=== PATIENT | female | born 1965 | race Caucasian/White ===

== ENCOUNTER 2020-02-10 06:16 | Inpatient (IN) | payer MEDICAID ==
[~2020-02-10] VITALS: Ht 149.9 cm; Wt 55.3 kg
[2020-02-10] VITALS (12 sets, daily range): BP systolic 89–105; BP diastolic 43–66
[2020-02-10] MEDS ORDERED: normal saline 1000ML IV soln IVB ONE (06:45)
[2020-02-10] MEDS ORDERED: pantoprazole 40 MG vial IV ONE (06:45)
[2020-02-10] MEDS ORDERED: normal saline 1000ml 1,000 ML IV SCH (07:39)
[2020-02-10] MEDS ORDERED: magnesium 4gm in 100ml NS 100 ML IV PRN ×2 (07:40→09:20)
[2020-02-10] MEDS ORDERED: magnesium Cl slow-release 64mg tablet PO PRN ×2 (07:40→09:20)
[2020-02-10] MEDS ORDERED: potassium Cl 20 mEq SR tablet PO PRN ×2 (07:40)
[2020-02-10] MEDS ORDERED: ondansetron/PF 4mg/2ml inj IV PRN ×4 (07:40→16:15)
[2020-02-10] MEDS ORDERED: potassium CL 10mEq/100ml bag 100 ML IV PRN ×3 (07:40→09:20)
[2020-02-10] MEDS ORDERED: magnesium 2GM in 50ml NS 50 ML IV PRN ×2 (07:40→09:20)
[2020-02-10] MEDS ORDERED: iohexol 300mg/ml 100ml inj. ONE (07:53)
[2020-02-10] MEDS: K and/or MAG REPLACEMENT MC SCH ×2 (08:00→20:00)
--- NOTE | 2020-02-10 08:43 | NUR ---
Patient in room ED 16. I have received report from Zack SINCLAIR and had the opportunity to ask questions and assume patient care. Awaiting patient's arrival to the unit.
[2020-02-10] MEDS ORDERED: piperacillin/tazo 3.375gm/50ml 50 ML IV ONE (09:00)
[2020-02-10 09:11] LABS: BASOPHILS # (AUTO) 0.1 X10'3 (0-0.2); BASOPHILS % (AUTO) 0.6 % (0-1); EOSINOPHILS % (AUTO) 0.1 % (0-6); HEMATOCRIT 31.1 % (35.0-45.0); HEMOGLOBIN 10.6 g/dl (12.0-16.0); LYMPHOCYTES # (AUTO) 0.9 X10'3 (1.1-4.8); LYMPHOCYTES % (AUTO) 8.9 % (21-51); MEAN CORPUSCULAR HEMOGLOBIN 36.6 PG (27.0-31.0); MEAN CORPUSCULAR VOLUME 107.8 FL (78-98); MEAN PLATELET VOLUME 7.2 FL (7.4-10.4); MONOCYTES # (AUTO) 0.9 X10'3 (0-0.9); MONOCYTES % (AUTO) 9.4 % (2-12); PLATELET COUNT 118 X10'3 (140-440); RED BLOOD COUNT 2.89 X10'6 (4.20-5.60); RED CELL DISTRIBUTION WIDTH 15.4 % (11.5-14.5); WHITE BLOOD COUNT 9.8 X10'3 (4.5-11.0)
[2020-02-10] MEDS ORDERED: desmopressin inj. 20 MCG in normal saline 100ml IV soln 95 ML IV ONE (09:15)
[2020-02-10] MEDS ORDERED: acetaminophen 650mg rectal suppository RC PRN (09:20)
[2020-02-10] MEDS ORDERED: sodium phosphate inj. 30 MMOL in dextrose 5%-water 250 ML IV PRN (09:20)
[2020-02-10] MEDS ORDERED: acetaminophen 325mg tablet PO PRN (09:20)
[2020-02-10] MEDS ORDERED: morphine 2 MG/ML inj. syringe IV PRN ×2 (09:20→13:45)
[2020-02-10] MEDS ORDERED: magnesium hydroxide 30ml (MOM) UD suspension PO PRN (09:20)
[2020-02-10] MEDS ORDERED: morphine 4 MG/ML inj SYRINge IV PRN ×2 (09:20→13:45)
[2020-02-10] MEDS ORDERED: sodium phosphate inj. 15 MMOL in dextrose 5%-water 250 ML IV PRN (09:20)
[2020-02-10] MEDS ORDERED: LIDOcaine 2% 10ml TOPICAL JELLY (Urojet) TP ONE (09:20)
[2020-02-10 09:26] LABS: PARTIAL THROMBOPLASTIN TIME 62 SECONDS (22-32)
[2020-02-10 09:36] LABS: ALANINE AMINOTRANSFERASE 32 U/L (12-78); ALBUMIN 1.1 G/DL (3.4-5.0); ALBUMIN/GLOBULIN RATIO 0.3 (1.1-1.5); ALKALINE PHOSPHATASE 94 IU/L (46-116); ANION GAP 9 (8-16); ASPARTATE AMINO TRANSFERASE 66 U/L (10-37); BILIRUBIN,TOTAL 2.9 MG/DL (0.1-1.0); BLOOD UREA NITROGEN 35 MG/DL (7-18); BUN/CREATININE RATIO 31.5 (6.6-38.0); CALCIUM 7.3 MG/DL (8.5-10.1); CHLORIDE 94 MMOL/L (99-107); CREATININE 1.11 MG/DL (0.40-0.90); GLUCOSE 102 MG/DL (70-104); POTASSIUM 4.4 MMOL/L (3.5-5.1); SODIUM 124 MMOL/L (135-145); TOTAL CARBON DIOXIDE 21.2 MMOL/L (24-32); TOTAL PROTEIN 5.1 G/DL (6.4-8.2); eGFR 51 ML/MIN
--- NOTE | 2020-02-10 09:54 | NUR ---
DR MARQUEZ CALLED ON [phone] TO NOTIFY LA 4.3
[2020-02-10 09:55] LABS: PLATELET ESTIMATE DECREASED
--- NOTE | 2020-02-10 09:55 | NUR ---
DR MARQUEZ NOT AVAILABLE LFT MESSAGE FOR LA 4.2
[2020-02-10 09:56] LABS: AMYLASE 115 U/L (25-115); LIPASE 593 U/L (73-393)
[2020-02-10] MEDS: normal saline 1000ml 1,000 ML IV SCH ×4 (10:03→22:36)
--- NOTE | 2020-02-10 10:11 | NUR ---
CALLED DR MARQUEZ REGARDING PT LOW BP 87/59 AND ALSO PT L;ACTIC ACID PER MD" DO NOT WORRY ABOUT IT ,WE HAVE PLAN" PICC LINE NURSE WITH DR MARQUEZ AWARE ABOUT PICC LINE NEED TO BE PLACED WHEN PT GO TO ICU.
--- NOTE | 2020-02-10 10:19 | NUR ---
RECEVIED CALL FROM BLOOD BANK FOR PRODUCT WHICH IS READY,PT NEED PICC LINE , AWARE ABOUT THE PICC LINE.
--- NOTE | 2020-02-10 10:21 | NUR ---
ECHO AT BEDSIDE.WILL CONT TO MONITOR.
--- NOTE | 2020-02-10 10:31 | NUR ---
Er called regarding PICC order for pt. Spoke with Dr. Ray regarding PICC order, per Dr. Ray place PICC when pt arrives to ICU. I responded to the ER and spoke with the nurse who states patient does have an IV but needs a PICC. I advised the nurse the PICC will be placed after leaving ER and arriving on the floor. Dayana East PICC swine extension field specialist
--- NOTE | 2020-02-10 10:55 | NUR ---
called report to david bennett at [facility] informed that pt products are ready ,echo at bedside as pt is done will send pt upsatirs and also notified that pt desmo is not started yet will send with the pt.
--- NOTE | 2020-02-10 11:20 | NUR ---
received from ER. placed NG return of reddish brown drainage approx 100cc. ddavp give PICC RN notified that pt in CICU
--- NOTE | 2020-02-10 12:20 | NUR ---
Received patient report from Andria Tamayo patient laying in bed with eyes open, vital signs stable no signs or symptoms of distress, Picc nurse bedside to place a PICC. OR called will be here in an hour or so to take patient surgery with Dr. ALEJANDRA
--- NOTE | 2020-02-10 13:01 | NUR ---
[facility] LINE INFORMATION: REF: [id number] LOT: [id number] EXP: 10/08/2020
[2020-02-10] MEDS ORDERED: LIDOcaine 1% 30ml preserv. free vial ONE (13:33)
[2020-02-10] MEDS ORDERED: BUPIVACAINE liposomal/PF 13.3 MG/ML vial IM ONE (13:33)
[2020-02-10] MEDS ORDERED: BUPIVAcaine/PF 2.5 mg/ml (0.25%) 30ml vial ONE (13:33)
[2020-02-10] MEDS ORDERED: BUPIVAcaine/PF 2.5mg/ml (0.25%) 10ml vial ONE (13:33)
[2020-02-10] MEDS ORDERED: ringers solution, lacted 1,000 ML IV SCH (13:43)
[2020-02-10] MEDS ORDERED: proCHLORperazine 10 MG/2 ml inj IV PRN (13:45)
[2020-02-10] MEDS ORDERED: meperidine/PF 25mg/ml syringe IV PRN ×3 (13:45)
[2020-02-10] MEDS ORDERED: FURO-150 PO (13:46)
[2020-02-10] MEDS ORDERED: SPIR50TA5 PO (13:46)
[2020-02-10] MEDS ORDERED: LIDOcaine 1% (10mg/ml) 2ml vial ONE (13:46)
[2020-02-10] MEDS ORDERED: OMEP-50 PO (13:46)
[2020-02-10] MEDS ORDERED: CELE200C PO (13:46)
[2020-02-10] MEDS ORDERED: normal saline 1000ml 1,000 ML IV ONE (13:50)
[2020-02-10] MEDS ORDERED: desflurane 240ml liquid inh. IH ONE (14:15)
[2020-02-10] MEDS ORDERED: neostigmine methylsulfate 1 MG/ML 10ml vial ONE (14:15)
[2020-02-10] MEDS ORDERED: glycopyrrolate 0.2mg/ml inj ONE (14:15)
--- NOTE | 2020-02-10 14:18 | NUR ---
PT TO OR
[2020-02-10] MEDS ORDERED: midazolam 2 mg/2 ml injection ONE (14:20)
[2020-02-10] MEDS ORDERED: fentaNYL /PF 50mcg/ml 5ml ampule ONE (14:21)
[2020-02-10] MEDS ORDERED: rocuronium 10mg/ml inj IV ONE (14:52)
[2020-02-10] MEDS ORDERED: propofol inj 20 ML IV ONE (14:52)
[2020-02-10] MEDS ORDERED: ceFOXitin 1000 MG inj ONE (14:52)
[2020-02-10 15:01] LABS: ABG BASE EXCESS -5.7 mmol/L (-2.0-2.0); ABG PCO2 (T) 33.5 mmHg (32.0-45.0); ABG PO2 (T) 83.9 mmHg (75.0-100.0); FCOHb 0.3 % (0.0-3.9); FMetHb 0.2 % (0.0-1.5); FO2Hb 94.5 % (94-97); TOTAL HEMOGLOBIN 7.7 G/dl (12.0-16.0)
[2020-02-10 15:01] LABS: ISTAT CREATININE 0.7 mg/dL (0.6-1.1); ISTAT HGB 7.5 g/dl (12.0-16.0); ISTAT IONIZED CALCIUM 1.03 mmol/L (1.03-1.32); ISTAT K 3.7 mmol/L (3.5-5.1); POC BUN/CREATININE RATIO 38.6 (6.6-38.0)
[2020-02-10] MEDS ORDERED: albumin (Human) 5% 250ml 250 ML IV ONE ×2 (15:06)
[2020-02-10] MEDS ORDERED: sugammadex 200mg/2ml injection IV ONE (15:42)
[2020-02-10] MEDS ORDERED: CADD PCA waste documentation MC PRN (16:15)
[2020-02-10] MEDS ORDERED: naloxone 0.4 mg/ml inj IV PRN (16:15)
--- NOTE | 2020-02-10 16:30 | NUR ---
Per Dr. Chong run patients Normal saline at 250mls/hr after the 1 liter bolus is complete. He also stated to give 5% albumin if blood pressure is "soft"
[2020-02-10] MEDS: HYDROmorphone/NS 1 mg/ml CADD 50 ML IV SCH ×5 (17:00→23:00)
[2020-02-10] MEDS: pantoprazole 40MG/NS 100ML BAG 100 ML IV SCH ×2 (17:08→21:28)
[2020-02-10] MEDS: thiamine inj. 100 MG, MVI, adult No.4 with vit. K 10 ML in dextrose 5% water 500ml 489 ML IV SCH ×3 (18:46)
--- NOTE | 2020-02-10 20:08 | NUR ---
Per Andria Schmitt RN if patient's BP is soft ok to admin Albumin 25% per Dr. Mares.
[2020-02-10] MEDS ORDERED: albumin (human) 25% 100 ML IV solution IV ONE ×2 (20:10→21:25)
[2020-02-10] MEDS ORDERED: pantoprazole 40MG/NS 100ML BAG 100 ML IV SCH (21:00)
[2020-02-11] VITALS (27 sets, daily range): BP systolic 89–107; BP diastolic 45–57
[2020-02-11] MEDS: piperacillin/tazo 4.5gm/100ml 100 ML IV SCH ×3 (00:01→15:49)
[2020-02-11] MEDS: pantoprazole 40MG/NS 100ML BAG 100 ML IV SCH ×5 (00:58→22:19)
[2020-02-11] MEDS: HYDROmorphone/NS 1 mg/ml CADD 50 ML IV SCH ×12 (01:00→23:00)
[2020-02-11] MEDS: normal saline 1000ml 1,000 ML IV SCH ×5 (02:08→15:15)
[2020-02-11 03:25] LABS: PARTIAL THROMBOPLASTIN TIME 62 SECONDS (22-32)
[2020-02-11 04:17] LABS: BASOPHILS % (AUTO) 0.6 % (0-1); EOSINOPHILS % (AUTO) 0.3 % (0-6); HEMOGLOBIN 7.3 g/dl (12.0-16.0); LYMPHOCYTES # (AUTO) 1.1 X10'3 (1.1-4.8); LYMPHOCYTES % (AUTO) 15.7 % (21-51); MEAN CORPUSCULAR HEMOGLOBIN 35.8 PG (27.0-31.0); MEAN CORPUSCULAR HGB CONC 33.6 g/dL (33.0-36.5); MEAN CORPUSCULAR VOLUME 106.7 FL (78-98); MEAN PLATELET VOLUME 6.7 FL (7.4-10.4); MONOCYTES # (AUTO) 0.8 X10'3 (0-0.9); MONOCYTES % (AUTO) 11.1 % (2-12); NEUTROPHILS % (AUTO) 72.3 % (42-75); PLATELET COUNT 58 X10'3 (140-440); RED BLOOD COUNT 2.03 X10'6 (4.20-5.60); RED CELL DISTRIBUTION WIDTH 15.2 % (11.5-14.5); WHITE BLOOD COUNT 6.9 X10'3 (4.5-11.0)
[2020-02-11 04:19] LABS: ALANINE AMINOTRANSFERASE 24 U/L (12-78); ALBUMIN 2.4 G/DL (3.4-5.0); ALKALINE PHOSPHATASE 55 IU/L (46-116); ANION GAP 10 (8-16); ASPARTATE AMINO TRANSFERASE 46 U/L (10-37); BILIRUBIN,TOTAL 2.5 MG/DL (0.1-1.0); BLOOD UREA NITROGEN 21 MG/DL (7-18); BUN/CREATININE RATIO 34.4 (6.6-38.0); CALCIUM 6.7 MG/DL (8.5-10.1); CHLORIDE 104 MMOL/L (99-107); CREATININE 0.61 MG/DL (0.40-0.90); GLUCOSE 83 MG/DL (70-104); MAGNESIUM 1.4 MG/DL (1.5-2.4); PARTIAL THROMBOPLASTIN TIME 63 SECONDS (22-32); PHOSPHORUS 1.8 MG/DL (2.3-4.5); SODIUM 133 MMOL/L (135-145); TOTAL CARBON DIOXIDE 19.2 MMOL/L (24-32); TOTAL PROTEIN 4.9 G/DL (6.4-8.2); eGFR > 90 ML/MIN
[2020-02-11 04:21] LABS: HEMATOCRIT 21.7 % (35.0-45.0); POTASSIUM 2.9 MMOL/L (3.5-5.1)
[2020-02-11] MEDS: potassium Cl 20mEq/100mL bag 100 ML IV PRN ×8 (04:39→18:31)
[2020-02-11] MEDS: K and/or MAG REPLACEMENT MC SCH ×2 (08:51→20:00)
[2020-02-11] MEDS: thiamine inj. 100 MG, MVI, adult No.4 with vit. K 10 ML in dextrose 5% water 500ml 489 ML IV SCH ×3 (08:52)
[2020-02-11] MEDS ORDERED: NORepinephrine 8mg/ 250ml NS 250 ML IV PRN (11:08)
--- NOTE | 2020-02-11 13:30 | NUR ---
Patient in room CICU 2008. I have received report from Sabine SINCLAIR and had the opportunity to ask questions and assume patient care.
--- NOTE | 2020-02-11 13:32 | NUR ---
RECEIVED ORDERS FROM DR. MARQUEZ FOR HYPOGLYCEMIC PROTOCOL, IS AWARE OF LOW BS 61 IN WHICH REQUIRED D50 IVP. ALSO CLARIFIED MED REQ ORDERS FOR LASIX TO BE GIVEN ON SUNDAY, SUNDAY, AND SUNDAY. MADE PHARMACY AWARE.
--- NOTE | 2020-02-11 13:37 | NUR ---
GAVE REPORT TO TAYA RN, TRANSFERRED CARE. SHE WILL BE WORKING ON GETTING ANOTHER LINE, PICC RN PAGED, ORALIA DRAIN AND MIDLINE INCISION ASSESSED TOGETHER. FFP INFUSING THEN PRBC TO BE TRANSFUSED. NOTED PATIENT'S MAP HAS IMPROVED SINCE START OF INFUSIONS.
[2020-02-11] MEDS ORDERED: dextrose 50%-water 50ml dispensing syringe IV PRN ×2 (13:40)
[2020-02-11] MEDS ORDERED: glucagon, human recombinant 1mg kit SUBCUT PRN (13:40)
[2020-02-11] MEDS ORDERED: dextrose ORAL solution 15 GM/59 ML bottle PO PRN ×2 (13:40)
[2020-02-11 14:33] LABS: ALBUMIN 2.4 G/DL (3.4-5.0); ANION GAP 9 (8-16); BLOOD UREA NITROGEN 16 MG/DL (7-18); BUN/CREATININE RATIO 26.7 (6.6-38.0); CALCIUM 7.3 MG/DL (8.5-10.1); CHLORIDE 106 MMOL/L (99-107); GLUCOSE 109 MG/DL (70-104); POTASSIUM 3.4 MMOL/L (3.5-5.1); SODIUM 133 MMOL/L (135-145); TOTAL CARBON DIOXIDE 17.6 MMOL/L (24-32); eGFR > 90 ML/MIN
[2020-02-11 15:14] LABS: MAGNESIUM 1.4 MG/DL (1.5-2.4)
[2020-02-11] MEDS: ipratropium/albuterol 3ml nebule NEB PRN (16:06)
--- NOTE | 2020-02-11 18:30 | NUR ---
Patient in room [facility] 2008. I have received report from Parvez SINCLAIR and had the opportunity to ask questions and assume patient care. Addendum: 02/11/20 at 1905 by Tri Gonzalez RN Amended: Links added.
--- NOTE | 2020-02-11 18:33 | NUR ---
Problems reprioritized. Patient report given, questions answered & plan of care reviewed with Tri SINCLAIR.
[2020-02-12] VITALS (30 sets, daily range): BP systolic 90–133; BP diastolic 40–91
[2020-02-12] MEDS: HYDROmorphone/NS 1 mg/ml CADD 50 ML IV SCH ×12 (01:00→22:59)
[2020-02-12] MEDS: normal saline 1000ml 1,000 ML IV SCH ×2 (01:16→05:41)
[2020-02-12 02:48] LABS: BASOPHILS # (AUTO) 0.2 X10'3 (0-0.2); BASOPHILS % (AUTO) 1.4 % (0-1); EOSINOPHILS # (AUTO) 0.1 X10'3 (0-0.9); EOSINOPHILS % (AUTO) 0.6 % (0-6); HEMATOCRIT 29.5 % (35.0-45.0); HEMOGLOBIN 10.1 g/dl (12.0-16.0); LYMPHOCYTES # (AUTO) 1.2 X10'3 (1.1-4.8); LYMPHOCYTES % (AUTO) 10.2 % (21-51); MEAN CORPUSCULAR HEMOGLOBIN 35.4 PG (27.0-31.0); MEAN CORPUSCULAR HGB CONC 34.2 g/dL (33.0-36.5); MEAN CORPUSCULAR VOLUME 103.7 FL (78-98); MEAN PLATELET VOLUME 6.9 FL (7.4-10.4); MONOCYTES # (AUTO) 0.9 X10'3 (0-0.9); MONOCYTES % (AUTO) 7.6 % (2-12); NEUTROPHILS # (AUTO) 9.2 X10'3 (1.8-7.7); NEUTROPHILS % (AUTO) 80.2 % (42-75); PLATELET COUNT 59 X10'3 (140-440); RED BLOOD COUNT 2.84 X10'6 (4.20-5.60); WHITE BLOOD COUNT 11.5 X10'3 (4.5-11.0)
[2020-02-12 03:01] LABS: PARTIAL THROMBOPLASTIN TIME 46 SECONDS (22-32)
[2020-02-12] MEDS: pantoprazole 40MG/NS 100ML BAG 100 ML IV SCH ×5 (03:10→22:59)
[2020-02-12] MEDS: piperacillin/tazo 4.5gm/100ml 100 ML IV SCH ×3 (03:10→16:49)
[2020-02-12 03:17] LABS: ALANINE AMINOTRANSFERASE 28 U/L (12-78); ALBUMIN 2.3 G/DL (3.4-5.0); ALBUMIN/GLOBULIN RATIO 0.8 (1.1-1.5); ALKALINE PHOSPHATASE 71 IU/L (46-116); ANION GAP 6 (8-16); ASPARTATE AMINO TRANSFERASE 62 U/L (10-37); BILIRUBIN,TOTAL 3.6 MG/DL (0.1-1.0); BLOOD UREA NITROGEN 13 MG/DL (7-18); BUN/CREATININE RATIO 22.8 (6.6-38.0); CALCIUM 7.6 MG/DL (8.5-10.1); CHLORIDE 107 MMOL/L (99-107); CREATININE 0.57 MG/DL (0.40-0.90); GLUCOSE 80 MG/DL (70-104); MAGNESIUM 2.7 MG/DL (1.5-2.4); PHOSPHORUS 1.6 MG/DL (2.3-4.5); POTASSIUM 4.6 MMOL/L (3.5-5.1); SODIUM 132 MMOL/L (135-145); TOTAL CARBON DIOXIDE 18.6 MMOL/L (24-32); TOTAL PROTEIN 5.2 G/DL (6.4-8.2); eGFR > 90 ML/MIN
--- NOTE | 2020-02-12 04:04 | NUR ---
Huber updated on current labs and patient's hemodynamic status. No new orders at this time. Titrating Levophed to keep MAP greater than 60.
--- NOTE | 2020-02-12 06:30 | NUR ---
Patient in room CICU 2008. I have received report from Tri SINCLAIR and had the opportunity to ask questions and assume patient care.
--- NOTE | 2020-02-12 06:30 | NUR ---
Problems reprioritized. Patient report given, questions answered & plan of care reviewed with Nhung SINCLAIR.
[2020-02-12] MEDS: thiamine inj. 100 MG, MVI, adult No.4 with vit. K 10 ML in dextrose 5% water 500ml 500 ML IV SCH ×3 (07:51)
[2020-02-12] MEDS: K and/or MAG REPLACEMENT MC SCH ×2 (08:00→19:45)
[2020-02-12] MEDS ORDERED: pneumococcal 23-VAL P-sac vacc 25 mcg/0.5ml vial IMVAC ONE (10:00)
[2020-02-12] MEDS: ipratropium/albuterol 3ml nebule NEB PRN (12:03)
--- NOTE | 2020-02-12 14:57 | NUR ---
Malnutrition consult: Pt reports 2-13 lb wt loss with decreased appetite per malnutrition risk screen with RN. Pt with EtOH hx, currently receiving banana bag. Patient's current scaled weight is 60.3 kg (140% IBW). Pt with perforated peptic ulcer, now s/p surgical repair and 10 L of ascites was drained from the abdomen per physician notes. Pt likely with fluctuations in appetite and weight secondary to fluid. Pt currently NPO with an NG tube in place. Pt with no documented significant decrease in muscle strength or edema. Pt currently lacks a minimum of two criteria for malnutrition. Will continue to follow. Addendum: 02/12/20 at [address] Amended: Links added.
[2020-02-12] MEDS: ipratropium/albuterol 3ml nebule NEB SCH ×3 (15:00→23:11)
--- NOTE | 2020-02-12 17:00 | NUR ---
Discussed if Dr. Ray would like repeat labs for phos or platelets. States can wait until am. Received order to start Albumin 25% 100 ML Q6H for 4 days. Will continue to monitor.
--- NOTE | 2020-02-12 18:50 | NUR ---
Problems reprioritized. Patient report given, questions answered & plan of care reviewed with Tri SINCLAIR.
[2020-02-12] MEDS ORDERED: pantoprazole 40 MG vial IV SCH (20:00)
[2020-02-12] MEDS: albumin (human) 25% 100 ML IV solution IV SCH (20:02)
[2020-02-13] VITALS (16 sets, daily range): BP systolic 80–120; BP diastolic 47–79
[2020-02-13] MEDS: piperacillin/tazo 4.5gm/100ml 100 ML IV SCH ×3 (00:29→15:40)
[2020-02-13] MEDS: HYDROmorphone/NS 1 mg/ml CADD 50 ML IV SCH ×9 (01:00→17:00)
[2020-02-13] MEDS: albumin (human) 25% 100 ML IV solution IV SCH ×4 (02:18→20:08)
[2020-02-13 03:19] LABS: BASOPHILS % (AUTO) 0.2 % (0-1); EOSINOPHILS # (AUTO) 0.1 X10'3 (0-0.9); EOSINOPHILS % (AUTO) 0.4 % (0-6); HEMOGLOBIN 9.6 g/dl (12.0-16.0); LYMPHOCYTES # (AUTO) 1.4 X10'3 (1.1-4.8); LYMPHOCYTES % (AUTO) 10.4 % (21-51); MEAN CORPUSCULAR HEMOGLOBIN 35.3 PG (27.0-31.0); MEAN CORPUSCULAR HGB CONC 34.4 g/dL (33.0-36.5); MEAN CORPUSCULAR VOLUME 102.6 FL (78-98); MEAN PLATELET VOLUME 7.3 FL (7.4-10.4); MONOCYTES # (AUTO) 0.8 X10'3 (0-0.9); MONOCYTES % (AUTO) 5.7 % (2-12); NEUTROPHILS # (AUTO) 11.5 X10'3 (1.8-7.7); NEUTROPHILS % (AUTO) 83.3 % (42-75); PLATELET COUNT 130 X10'3 (140-440); RED BLOOD COUNT 2.73 X10'6 (4.20-5.60); RED CELL DISTRIBUTION WIDTH 17.7 % (11.5-14.5); WHITE BLOOD COUNT 13.8 X10'3 (4.5-11.0)
[2020-02-13 03:28] LABS: PARTIAL THROMBOPLASTIN TIME 48 SECONDS (22-32)
[2020-02-13] MEDS: ipratropium/albuterol 3ml nebule NEB SCH ×6 (03:41→23:00)
[2020-02-13 03:45] LABS: ALANINE AMINOTRANSFERASE 25 U/L (12-78); ALBUMIN 2.4 G/DL (3.4-5.0); ALBUMIN/GLOBULIN RATIO 0.9 (1.1-1.5); ALKALINE PHOSPHATASE 74 IU/L (46-116); ANION GAP 10 (8-16); ASPARTATE AMINO TRANSFERASE 56 U/L (10-37); BILIRUBIN,TOTAL 2.8 MG/DL (0.1-1.0); BLOOD UREA NITROGEN 7 MG/DL (7-18); BUN/CREATININE RATIO 12.7 (6.6-38.0); CALCIUM 7.9 MG/DL (8.5-10.1); CHLORIDE 106 MMOL/L (99-107); CREATININE 0.55 MG/DL (0.40-0.90); GLUCOSE 89 MG/DL (70-104); MAGNESIUM 2.1 MG/DL (1.5-2.4); PHOSPHORUS 2.4 MG/DL (2.3-4.5); POTASSIUM 3.4 MMOL/L (3.5-5.1); SODIUM 135 MMOL/L (135-145); TOTAL CARBON DIOXIDE 19.4 MMOL/L (24-32); TOTAL PROTEIN 5.2 G/DL (6.4-8.2); eGFR > 90 ML/MIN
[2020-02-13] MEDS: normal saline 1000ml 1,000 ML IV SCH ×2 (03:56→17:58)
[2020-02-13] MEDS: potassium Cl 20mEq/100mL bag 100 ML IV PRN ×4 (04:35→20:09)
[2020-02-13] MEDS: pantoprazole 40MG/NS 100ML BAG 100 ML IV SCH ×3 (04:36→14:58)
--- NOTE | 2020-02-13 06:30 | NUR ---
Patient in room CICU 2007. I have received report from YAHIR Bartlett and had the opportunity to ask questions and assume patient care.
[2020-02-13] MEDS: furosemide 20MG tablet PO SCH (08:00)
[2020-02-13] MEDS: K and/or MAG REPLACEMENT MC SCH ×2 (08:00→20:09)
[2020-02-13] MEDS: thiamine inj. 100 MG, MVI, adult No.4 with vit. K 10 ML in dextrose 5% water 500ml 500 ML IV SCH ×3 (09:58)
--- NOTE | 2020-02-13 14:10 | NUR ---
Patient stable for transfer per MD orders. Patient belongings and chart gathered. Report given to YAHIR Rosenberg. Allowed time for questioning, all questions asked. [facility] discontinued, with catheter tip intact. Tele box placed on patient prior to departure. Patient transfered to [facility].
--- NOTE | 2020-02-13 14:19 | NUR ---
Patient in room CICU 2007 admitted to U 3018B. I have received report from Yaneth SINCLAIR and had the opportunity to ask questions and assume patient care.
--- NOTE | 2020-02-13 18:25 | NUR ---
Problems reprioritized. Patient report given, questions answered & plan of care reviewed with Vandana SINCLAIR.
[2020-02-13] MEDS: lactobacillus rhamnosus 10,000 MMU CELLS/CAPSULE PO SCH (20:08)
[2020-02-14] MEDS: piperacillin/tazo 4.5gm/100ml 100 ML IV SCH ×4 (01:01→23:38)
[2020-02-14] MEDS: albumin (human) 25% 100 ML IV solution IV SCH ×4 (01:08→19:46)
[2020-02-14 02:00] VITALS: BP 105/63
[2020-02-14] MEDS: ipratropium/albuterol 3ml nebule NEB SCH ×6 (03:00→23:02)
[2020-02-14 06:00] VITALS: BP 115/62
[2020-02-14 06:12] LABS: BASOPHILS # (AUTO) 0.1 X10'3 (0-0.2); BASOPHILS % (AUTO) 0.4 % (0-1); EOSINOPHILS # (AUTO) 0.1 X10'3 (0-0.9); EOSINOPHILS % (AUTO) 0.4 % (0-6); HEMATOCRIT 27.5 % (35.0-45.0); HEMOGLOBIN 9.5 g/dl (12.0-16.0); LYMPHOCYTES # (AUTO) 1.3 X10'3 (1.1-4.8); LYMPHOCYTES % (AUTO) 8.6 % (21-51); MEAN CORPUSCULAR HEMOGLOBIN 35.5 PG (27.0-31.0); MEAN CORPUSCULAR HGB CONC 34.4 g/dL (33.0-36.5); MEAN PLATELET VOLUME 7.2 FL (7.4-10.4); MONOCYTES # (AUTO) 0.7 X10'3 (0-0.9); MONOCYTES % (AUTO) 4.8 % (2-12); NEUTROPHILS # (AUTO) 12.5 X10'3 (1.8-7.7); NEUTROPHILS % (AUTO) 85.8 % (42-75); PLATELET COUNT 99 X10'3 (140-440); RED BLOOD COUNT 2.67 X10'6 (4.20-5.60); RED CELL DISTRIBUTION WIDTH 17.8 % (11.5-14.5); WHITE BLOOD COUNT 14.6 X10'3 (4.5-11.0)
[2020-02-14 06:21] LABS: PARTIAL THROMBOPLASTIN TIME 73 SECONDS (22-32)
--- NOTE | 2020-02-14 06:21 | NUR ---
Problems reprioritized. Patient report given, questions answered & plan of care reviewed with YAHIR Rosenberg.
--- NOTE | 2020-02-14 06:26 | NUR ---
reported critical PTT of to June, no new orders at this time, she will review her chart, will continue to monitor.
--- NOTE | 2020-02-14 06:27 | NUR ---
Patient in room PCU 3016. I have received report from Felix SINCLAIR and had the opportunity to ask questions and assume patient care.
[2020-02-14 06:34] LABS: ALBUMIN 3.2 G/DL (3.4-5.0); ALBUMIN/GLOBULIN RATIO 1.6 (1.1-1.5); ALKALINE PHOSPHATASE 93 IU/L (46-116); ANION GAP 10 (8-16); ASPARTATE AMINO TRANSFERASE 49 U/L (10-37); CALCIUM 8.1 MG/DL (8.5-10.1); CHLORIDE 106 MMOL/L (99-107); GLUCOSE 92 MG/DL (70-104); MAGNESIUM 1.8 MG/DL (1.5-2.4); PHOSPHORUS 2.2 MG/DL (2.3-4.5); POTASSIUM 3.3 MMOL/L (3.5-5.1); SODIUM 137 MMOL/L (135-145); TOTAL CARBON DIOXIDE 21.5 MMOL/L (24-32); TOTAL PROTEIN 5.2 G/DL (6.4-8.2)
[2020-02-14] MEDS: normal saline 1000ml 1,000 ML IV SCH ×2 (06:36→22:58)
[2020-02-14 07:00] LABS: ALANINE AMINOTRANSFERASE 22 U/L (12-78)
[2020-02-14] MEDS ORDERED: CADD PCA waste documentation MC PRN (07:00)
[2020-02-14] MEDS: lactobacillus rhamnosus 10,000 MMU CELLS/CAPSULE PO SCH ×2 (07:16→19:47)
[2020-02-14] MEDS: oxyCODONE IR 5mg (immed. release) tablet PO PRN (07:17)
[2020-02-14] MEDS: pantoprazole 40mg Tablet.DR PO SCH (07:17)
[2020-02-14] MEDS: thiamine inj. 100 MG, MVI, adult No.4 with vit. K 10 ML in dextrose 5% water 500ml 500 ML IV SCH ×3 (07:19)
[2020-02-14 07:26] LABS: BLOOD UREA NITROGEN 3 MG/DL (7-18); BUN/CREATININE RATIO 6.5 (6.6-38.0); CREATININE 0.46 MG/DL (0.40-0.90); eGFR > 90 ML/MIN
[2020-02-14] MEDS: potassium Cl 20 mEq SR tablet PO PRN ×3 (07:57→20:14)
[2020-02-14] MEDS: K and/or MAG REPLACEMENT MC SCH ×2 (08:42→20:00)
[2020-02-14] MEDS: phytonadione inj. 10 MG in normal saline 100ml IV soln 100 ML IV SCH (08:43)
[2020-02-14 11:00] VITALS: BP 90/50
[2020-02-14 15:00] VITALS: BP 95/60
[2020-02-14] MEDS ORDERED: metoclopramide 5 mg/ml inj IV PRN (16:10)
[2020-02-14] MEDS ORDERED: methylnaltrexone br 12mg/0.6ml inj***SubQ only SQ ONE (16:10)
[2020-02-14 18:00] VITALS: BP 108/66
--- NOTE | 2020-02-14 18:28 | NUR ---
Problems reprioritized. Patient report given, questions answered & plan of care reviewed with Vandana SINCLAIR.
[2020-02-14] MEDS: magnesium hydroxide 30ml (MOM) UD suspension PO SCH (19:47)
--- NOTE | 2020-02-14 20:10 | NUR ---
Pt refusing MetaNeb for second night in the row. States she would like to do breathing treatment in nebulizer followed by acapella (flutter).
[2020-02-14 22:00] VITALS: BP 106/84
--- NOTE | 2020-02-14 23:49 | NUR ---
Paged Dr. James. PAGER ID: [phone] MESSAGE: This is YAHIR Ross from [facility]. Pt in 3016B [facility] [address] 55 F Dx GI Bleed,Liver Cirrhosis has a small amt of leak of blood on her abdominal incision.Incision is well-approximated; no s/s of infection; island drsg applied; will cont, to monitor
[2020-02-15] MEDS: oxyCODONE IR 5mg (immed. release) tablet PO PRN ×3 (01:13→16:16)
[2020-02-15] MEDS: albumin (human) 25% 100 ML IV solution IV SCH ×2 (01:31→08:00)
[2020-02-15 02:00] VITALS: BP 92/48
[2020-02-15] MEDS ORDERED: LORazepam 2 mg/ml vial IV ONE (02:40)
[2020-02-15] MEDS: ipratropium/albuterol 3ml nebule NEB SCH ×6 (03:25→23:11)
[2020-02-15 06:00] VITALS: BP 92/56
[2020-02-15 06:03] LABS: BASOPHILS # (AUTO) 0.1 X10'3 (0-0.2); BASOPHILS % (AUTO) 0.4 % (0-1); EOSINOPHILS # (AUTO) 0.1 X10'3 (0-0.9); EOSINOPHILS % (AUTO) 0.4 % (0-6); HEMATOCRIT 24.9 % (35.0-45.0); HEMOGLOBIN 8.5 g/dl (12.0-16.0); LYMPHOCYTES % (AUTO) 7.5 % (21-51); MEAN CORPUSCULAR HEMOGLOBIN 35.2 PG (27.0-31.0); MEAN CORPUSCULAR HGB CONC 34.3 g/dL (33.0-36.5); MEAN CORPUSCULAR VOLUME 102.6 FL (78-98); MEAN PLATELET VOLUME 7.7 FL (7.4-10.4); MONOCYTES # (AUTO) 0.5 X10'3 (0-0.9); MONOCYTES % (AUTO) 3.8 % (2-12); NEUTROPHILS % (AUTO) 87.9 % (42-75); PLATELET COUNT 79 X10'3 (140-440); RED BLOOD COUNT 2.43 X10'6 (4.20-5.60); RED CELL DISTRIBUTION WIDTH 17.1 % (11.5-14.5); WHITE BLOOD COUNT 13.6 X10'3 (4.5-11.0)
[2020-02-15 06:19] LABS: PARTIAL THROMBOPLASTIN TIME 91 SECONDS (22-32)
[2020-02-15 06:22] LABS: ALANINE AMINOTRANSFERASE 20 U/L (12-78); ALBUMIN 3.7 G/DL (3.4-5.0); ALBUMIN/GLOBULIN RATIO 2.1 (1.1-1.5); ALKALINE PHOSPHATASE 80 IU/L (46-116); ANION GAP 12 (8-16); ASPARTATE AMINO TRANSFERASE 47 U/L (10-37); BILIRUBIN,TOTAL 3.1 MG/DL (0.1-1.0); BLOOD UREA NITROGEN 2 MG/DL (7-18); BUN/CREATININE RATIO 3.4 (6.6-38.0); CALCIUM 8.3 MG/DL (8.5-10.1); CHLORIDE 103 MMOL/L (99-107); CREATININE 0.59 MG/DL (0.40-0.90); GLUCOSE 104 MG/DL (70-104); MAGNESIUM 1.6 MG/DL (1.5-2.4); PHOSPHORUS 2.2 MG/DL (2.3-4.5); SODIUM 135 MMOL/L (135-145); TOTAL CARBON DIOXIDE 20.3 MMOL/L (24-32); TOTAL PROTEIN 5.5 G/DL (6.4-8.2); eGFR > 90 ML/MIN
--- NOTE | 2020-02-15 06:33 | NUR ---
Problems reprioritized. Patient report given, questions answered & plan of care reviewed with YAHIR East.
--- NOTE | 2020-02-15 07:12 | NUR ---
Patient in room PCU 3016. I have received report from AZALIA SINCLAIR and had the opportunity to ask questions and assume patient care.
[2020-02-15] MEDS: K and/or MAG REPLACEMENT MC SCH ×2 (08:00→20:00)
[2020-02-15] MEDS: potassium Cl 20 mEq SR tablet PO PRN ×3 (08:49→17:40)
[2020-02-15] MEDS: multivitamins, therapeutics tablet PO SCH (08:49)
[2020-02-15] MEDS: thiamine 100mg tablet PO SCH (08:49)
[2020-02-15] MEDS: lactobacillus rhamnosus 10,000 MMU CELLS/CAPSULE PO SCH ×2 (08:50→20:21)
[2020-02-15] MEDS: pantoprazole 40mg Tablet.DR PO SCH (08:50)
[2020-02-15] MEDS: magnesium hydroxide 30ml (MOM) UD suspension PO SCH ×2 (08:51→20:00)
[2020-02-15] MEDS: piperacillin/tazo 4.5gm/100ml 100 ML IV SCH ×2 (08:54→16:15)
[2020-02-15] MEDS: normal saline 1000ml 1,000 ML IV SCH ×2 (09:16→15:14)
[2020-02-15] MEDS: phytonadione inj. 10 MG in normal saline 100ml IV soln 100 ML IV SCH (10:42)
[2020-02-15 11:00] VITALS: BP 94/54
[2020-02-15] MEDS ORDERED: pneumococcal 23-VAL P-sac vacc 25 mcg/0.5ml vial IMVAC ONE (11:10)
[2020-02-15 14:19] LABS: H PYLORI ANTIBODY NEGATIVE (Neg)
--- NOTE | 2020-02-15 14:40 | NUR ---
Problems reprioritized. Patient report given, questions answered & plan of care reviewed with Kylee RN.
[2020-02-15 15:45] VITALS: BP 103/67
--- NOTE | 2020-02-15 16:25 | NUR ---
Initial: Pt s/p perforated duodenal ulcer repair w/ drain removal per MD. DX sepsis secondary to perforation, GIB, hypokalemia,and etoh liver disease per MD. Advanced to full liquid diet today from clears yesterday. Nausea noted today per MD w/ refusal of breakfast and 0-25% lunch today. PO 50% first day of PO clears yesterday per EMR. LBM 02/09 receiving MoM and s/p relistor yesterday w/ next dose tomorrow per EMR; reglan PRN ordered but not given at this time. Receiving electrolyte replacement per protocol, PO thiamin/MVI for etoh hx, and daily vitamin K per EMR. Will monitor for PO diet tolerance and additional protein needs post-op. Rec: 1. advance diet as medically indicated to regular 2. monitor for ONS needs 3. routine bowel care; opioid antagonist per MD 4. weekly wts Addendum: 02/15/20 at 1625 by Luis Antonio [address]w RD Amended: Links added.
--- NOTE | 2020-02-15 19:00 | NUR ---
Problems reprioritized. Patient report given, questions answered & plan of care reviewed with Madisyn RN.
[2020-02-15 19:30] VITALS: BP 90/57
[2020-02-16] VITALS: BP 102/54
[2020-02-16] MEDS: piperacillin/tazo 4.5gm/100ml 100 ML IV SCH ×3 (00:08→16:19)
--- NOTE | 2020-02-16 02:00 | NUR ---
pt refuses to have accucheck Addendum: 02/16/20 at 0336 by Deisy Tay RN Amended: Links added.
[2020-02-16] MEDS: ipratropium/albuterol 3ml nebule NEB SCH ×6 (02:40→23:39)
[2020-02-16] MEDS: oxyCODONE IR 5mg (immed. release) tablet PO PRN ×3 (04:54→21:14)
[2020-02-16] MEDS: normal saline 1000ml 1,000 ML IV SCH ×2 (04:57→16:23)
[2020-02-16 06:04] LABS: BASOPHILS # (AUTO) 0.1 X10'3 (0-0.2); BASOPHILS % (AUTO) 0.3 % (0-1); EOSINOPHILS # (AUTO) 0.1 X10'3 (0-0.9); EOSINOPHILS % (AUTO) 0.7 % (0-6); HEMATOCRIT 30.1 % (35.0-45.0); HEMOGLOBIN 10.3 g/dl (12.0-16.0); LYMPHOCYTES # (AUTO) 1.5 X10'3 (1.1-4.8); LYMPHOCYTES % (AUTO) 7.5 % (21-51); MEAN CORPUSCULAR HEMOGLOBIN 35.4 PG (27.0-31.0); MEAN CORPUSCULAR HGB CONC 34.2 g/dL (33.0-36.5); MEAN CORPUSCULAR VOLUME 103.7 FL (78-98); MEAN PLATELET VOLUME 7.6 FL (7.4-10.4); MONOCYTES # (AUTO) 1.2 X10'3 (0-0.9); MONOCYTES % (AUTO) 5.9 % (2-12); NEUTROPHILS # (AUTO) 16.7 X10'3 (1.8-7.7); NEUTROPHILS % (AUTO) 85.6 % (42-75); PLATELET COUNT 76 X10'3 (140-440); RED CELL DISTRIBUTION WIDTH 17.4 % (11.5-14.5); WHITE BLOOD COUNT 19.5 X10'3 (4.5-11.0)
[2020-02-16 06:19] LABS: ALANINE AMINOTRANSFERASE 22 U/L (12-78); ALBUMIN 3.1 G/DL (3.4-5.0); ALKALINE PHOSPHATASE 102 IU/L (46-116); ANION GAP 7 (8-16); ASPARTATE AMINO TRANSFERASE 70 U/L (10-37); BILIRUBIN,TOTAL 4.3 MG/DL (0.1-1.0); BLOOD UREA NITROGEN 6 MG/DL (7-18); BUN/CREATININE RATIO 10.5 (6.6-38.0); CALCIUM 8.1 MG/DL (8.5-10.1); CHLORIDE 107 MMOL/L (99-107); CREATININE 0.57 MG/DL (0.40-0.90); GLUCOSE 67 MG/DL (70-104); MAGNESIUM 1.6 MG/DL (1.5-2.4); PARTIAL THROMBOPLASTIN TIME 85 SECONDS (22-32); POTASSIUM 4.7 MMOL/L (3.5-5.1); SODIUM 136 MMOL/L (135-145); TOTAL CARBON DIOXIDE 21.6 MMOL/L (24-32); eGFR > 90 ML/MIN
[2020-02-16 06:25] LABS: ALBUMIN/GLOBULIN RATIO 1.5 (1.1-1.5); PHOSPHORUS 1.8 MG/DL (2.3-4.5); TOTAL PROTEIN 5.2 G/DL (6.4-8.2)
[2020-02-16 07:00] VITALS: BP 91/58
--- NOTE | 2020-02-16 07:00 | NUR ---
Patient in room MATTHEW 345B. I have received report from YAHIR JAVIER and had the opportunity to ask questions and assume patient care
[2020-02-16] MEDS: magnesium hydroxide 30ml (MOM) UD suspension PO SCH ×2 (07:45→20:00)
[2020-02-16] MEDS: methylnaltrexone br 12mg/0.6ml inj***SubQ only SQ SCH (07:47)
[2020-02-16] MEDS: Neutra Phos packet PO PRN ×2 (07:57→21:15)
[2020-02-16] MEDS: multivitamins, therapeutics tablet PO SCH (07:57)
[2020-02-16] MEDS: furosemide 20MG tablet PO SCH (07:57)
[2020-02-16] MEDS: thiamine 100mg tablet PO SCH (07:57)
[2020-02-16] MEDS: pantoprazole 40mg Tablet.DR PO SCH (07:57)
[2020-02-16] MEDS: lactobacillus rhamnosus 10,000 MMU CELLS/CAPSULE PO SCH ×2 (07:57→21:14)
[2020-02-16] MEDS: K and/or MAG REPLACEMENT MC SCH ×2 (08:00→20:00)
[2020-02-16] MEDS: phytonadione inj. 10 MG in normal saline 100ml IV soln 100 ML IV SCH (09:18)
[2020-02-16] MEDS ORDERED: phytonadione inj. 10 MG in normal saline 100ml IV soln 100 ML IV ONE (11:30)
[2020-02-16 12:00] VITALS: BP 110/67
--- NOTE | 2020-02-16 18:15 | NUR ---
Problems reprioritized. Patient report given, questions answered & plan of care reviewed with JODI ZAPATA RN.
--- NOTE | 2020-02-16 18:30 | NUR ---
Patient in room MATTHEW 345. I have received report from LORRAINE SINCLAIR and had the opportunity to ask questions and assume patient care.
[2020-02-16 20:00] VITALS: BP 88/54
[2020-02-17] VITALS: BP 100/66
[2020-02-17] MEDS: piperacillin/tazo 4.5gm/100ml 100 ML IV SCH ×2 (00:06→09:26)
[2020-02-17] MEDS: ipratropium/albuterol 3ml nebule NEB SCH ×6 (03:18→22:32)
[2020-02-17] MEDS: normal saline 1000ml 1,000 ML IV SCH ×2 (04:22→21:38)
[2020-02-17 05:09] LABS: BASOPHILS # (AUTO) 0.2 X10'3 (0-0.2); EOSINOPHILS # (AUTO) 0.1 X10'3 (0-0.9); EOSINOPHILS % (AUTO) 0.8 % (0-6); HEMATOCRIT 28.7 % (35.0-45.0); HEMOGLOBIN 9.6 g/dl (12.0-16.0); LYMPHOCYTES # (AUTO) 1.4 X10'3 (1.1-4.8); LYMPHOCYTES % (AUTO) 8.7 % (21-51); MEAN CORPUSCULAR HEMOGLOBIN 34.5 PG (27.0-31.0); MEAN CORPUSCULAR HGB CONC 33.5 g/dL (33.0-36.5); MEAN CORPUSCULAR VOLUME 102.9 FL (78-98); MEAN PLATELET VOLUME 8.2 FL (7.4-10.4); MONOCYTES % (AUTO) 6.4 % (2-12); NEUTROPHILS # (AUTO) 13.4 X10'3 (1.8-7.7); NEUTROPHILS % (AUTO) 83.1 % (42-75); PLATELET COUNT 60 X10'3 (140-440); RED BLOOD COUNT 2.79 X10'6 (4.20-5.60); WHITE BLOOD COUNT 16.1 X10'3 (4.5-11.0)
[2020-02-17 05:23] LABS: ALANINE AMINOTRANSFERASE 19 U/L (12-78); ALBUMIN 2.6 G/DL (3.4-5.0); ALKALINE PHOSPHATASE 109 IU/L (46-116); ANION GAP 9 (8-16); ASPARTATE AMINO TRANSFERASE 65 U/L (10-37); BILIRUBIN,TOTAL 4.5 MG/DL (0.1-1.0); BLOOD UREA NITROGEN 7 MG/DL (7-18); BUN/CREATININE RATIO 11.9 (6.6-38.0); CALCIUM 7.9 MG/DL (8.5-10.1); CHLORIDE 104 MMOL/L (99-107); CREATININE 0.59 MG/DL (0.40-0.90); GLUCOSE 70 MG/DL (70-104); MAGNESIUM 1.5 MG/DL (1.5-2.4); POTASSIUM 3.7 MMOL/L (3.5-5.1); SODIUM 133 MMOL/L (135-145); TOTAL CARBON DIOXIDE 20.3 MMOL/L (24-32); eGFR > 90 ML/MIN
[2020-02-17 05:38] LABS: ALBUMIN/GLOBULIN RATIO 1.1 (1.1-1.5); PHOSPHORUS 3.3 MG/DL (2.3-4.5); TOTAL PROTEIN 4.9 G/DL (6.4-8.2)
[2020-02-17 05:40] LABS: PARTIAL THROMBOPLASTIN TIME 84 SECONDS (22-32)
--- NOTE | 2020-02-17 05:55 | NUR ---
PAGED DR. HITCHCOCK TO INFORM CRITICAL APTT 84 WHICH IS BETTER THAN YESTERDAY 85.
--- NOTE | 2020-02-17 06:30 | NUR ---
Problems reprioritized. Patient report given, questions answered & plan of care reviewed with LORRAINE SINCLARI.
--- NOTE | 2020-02-17 06:45 | NUR ---
Patient in room MATTHEW 345B. I have received report from JODI ZAPATA RN and had the opportunity to ask questions and assume patient care.
[2020-02-17 08:00] VITALS: BP_SYST 137; BP_SYST 99; BP_DIAS 63; BP_DIAS 95
[2020-02-17] MEDS: magnesium hydroxide 30ml (MOM) UD suspension PO SCH ×2 (08:00→20:00)
[2020-02-17] MEDS: K and/or MAG REPLACEMENT MC SCH ×2 (08:00→20:00)
[2020-02-17] MEDS: multivitamins, therapeutics tablet PO SCH (09:26)
[2020-02-17] MEDS: thiamine 100mg tablet PO SCH (09:26)
[2020-02-17] MEDS: pantoprazole 40mg Tablet.DR PO SCH (09:26)
[2020-02-17] MEDS: lactobacillus rhamnosus 10,000 MMU CELLS/CAPSULE PO SCH ×2 (09:27→19:49)
--- NOTE | 2020-02-17 12:13 | NUR ---
Patient in room MATTHEW 345. I have received report from YAHIR Landeros and had the opportunity to ask questions and assume patient care.
[2020-02-17] MEDS ORDERED: phytonadione inj. 10 MG in normal saline 100ml IV soln 100 ML IV ONE (12:40)
[2020-02-17] MEDS ORDERED: piperacillin/tazo 3.375gm/50ml 50 ML IV SCH (16:00)
--- NOTE | 2020-02-17 17:47 | NUR ---
checked student nurse charting
[2020-02-17] MEDS: amox tr/potassium clavulanate 875/125mg TAB PO SCH (17:48)
--- NOTE | 2020-02-17 18:10 | NUR ---
Problems reprioritized. Patient report given, questions answered & plan of care reviewed with JODI ZAPATA RN.
--- NOTE | 2020-02-17 18:30 | NUR ---
Patient in room MATTHEW 345. I have received report from LORRAINE SINCLAIR and had the opportunity to ask questions and assume patient care.
[2020-02-17 19:26] VITALS: BP 100/64
[2020-02-17] MEDS: oxyCODONE IR 5mg (immed. release) tablet PO PRN (19:49)
[2020-02-18] VITALS: BP 108/69
[2020-02-18] MEDS: ipratropium/albuterol 3ml nebule NEB SCH ×6 (02:17→23:00)
[2020-02-18 05:30] LABS: BASOPHILS # (AUTO) 0.1 X10'3 (0-0.2); BASOPHILS % (AUTO) 0.8 % (0-1); EOSINOPHILS # (AUTO) 0.1 X10'3 (0-0.9); EOSINOPHILS % (AUTO) 0.7 % (0-6); HEMOGLOBIN 9.6 g/dl (12.0-16.0); LYMPHOCYTES # (AUTO) 1.5 X10'3 (1.1-4.8); LYMPHOCYTES % (AUTO) 9.2 % (21-51); MEAN CORPUSCULAR HEMOGLOBIN 34.1 PG (27.0-31.0); MEAN CORPUSCULAR HGB CONC 33.2 g/dL (33.0-36.5); MEAN CORPUSCULAR VOLUME 102.6 FL (78-98); MEAN PLATELET VOLUME 7.7 FL (7.4-10.4); MONOCYTES # (AUTO) 1.4 X10'3 (0-0.9); MONOCYTES % (AUTO) 8.8 % (2-12); NEUTROPHILS # (AUTO) 13.1 X10'3 (1.8-7.7); NEUTROPHILS % (AUTO) 80.5 % (42-75); PLATELET COUNT 66 X10'3 (140-440); RED BLOOD COUNT 2.82 X10'6 (4.20-5.60); RED CELL DISTRIBUTION WIDTH 16.8 % (11.5-14.5); WHITE BLOOD COUNT 16.3 X10'3 (4.5-11.0)
[2020-02-18 05:41] LABS: ALANINE AMINOTRANSFERASE 26 U/L (12-78); ALBUMIN 2.4 G/DL (3.4-5.0); ALBUMIN/GLOBULIN RATIO 0.9 (1.1-1.5); ALKALINE PHOSPHATASE 128 IU/L (46-116); ANION GAP 8 (8-16); ASPARTATE AMINO TRANSFERASE 72 U/L (10-37); BILIRUBIN,TOTAL 4.4 MG/DL (0.1-1.0); BLOOD UREA NITROGEN 8 MG/DL (7-18); BUN/CREATININE RATIO 15.7 (6.6-38.0); CALCIUM 7.5 MG/DL (8.5-10.1); CHLORIDE 103 MMOL/L (99-107); CREATININE 0.51 MG/DL (0.40-0.90); GLUCOSE 86 MG/DL (70-104); MAGNESIUM 1.3 MG/DL (1.5-2.4); PHOSPHORUS 3.1 MG/DL (2.3-4.5); POTASSIUM 3.5 MMOL/L (3.5-5.1); SODIUM 132 MMOL/L (135-145); TOTAL CARBON DIOXIDE 20.6 MMOL/L (24-32); TOTAL PROTEIN 5.1 G/DL (6.4-8.2); eGFR > 90 ML/MIN
[2020-02-18 05:47] LABS: PARTIAL THROMBOPLASTIN TIME 90 SECONDS (22-32)
--- NOTE | 2020-02-18 05:50 | NUR ---
CALLED DR. CHAPA AND WAS INFORMED ABOUT CRITICAL APTT 90 AND WAS 84 YESTERDAY, NO NEW ORDERS MADE.
--- NOTE | 2020-02-18 06:15 | NUR ---
Problems reprioritized. Patient report given, questions answered & plan of care reviewed with OLAYINKA SINCLAIR.
--- NOTE | 2020-02-18 06:19 | NUR ---
Patient in room MATTHEW 345. I have received report from Sushma SINCLAIR and had the opportunity to ask questions and assume patient care.
[2020-02-18 07:00] VITALS: BP 99/59
[2020-02-18] MEDS: magnesium hydroxide 30ml (MOM) UD suspension PO SCH ×2 (08:00→20:00)
[2020-02-18] MEDS: furosemide 20MG tablet PO SCH (08:00)
[2020-02-18] MEDS: methylnaltrexone br 12mg/0.6ml inj***SubQ only SQ SCH (08:00)
[2020-02-18] MEDS: lactobacillus rhamnosus 10,000 MMU CELLS/CAPSULE PO SCH ×2 (08:44→20:37)
[2020-02-18] MEDS: amox tr/potassium clavulanate 875/125mg TAB PO SCH ×2 (08:44→19:08)
[2020-02-18] MEDS: thiamine 100mg tablet PO SCH (08:44)
[2020-02-18] MEDS: multivitamins, therapeutics tablet PO SCH (08:44)
[2020-02-18] MEDS: pantoprazole 40mg Tablet.DR PO SCH (08:44)
[2020-02-18] MEDS: K and/or MAG REPLACEMENT MC SCH ×2 (08:47→20:00)
--- NOTE | 2020-02-18 09:08 | NUR ---
PAGER ID: [phone] MESSAGE: re: VirginiaB, [facility]. Please call Arianne [phone] thank you
--- NOTE | 2020-02-18 09:30 | NUR ---
at bedside, report given re: Lul and albino Batista for Mag order, PTT critical level, low Na+, belly distended and firm. Order received. Will continue to monitor pt. Addendum: 02/18/20 at 1130 by [address] RN Dr also notified of pt's BGs and poor PO intake.
[2020-02-18] MEDS ORDERED: magnesium 2GM in 50ml NS 50 ML IV PRN (09:35)
[2020-02-18] MEDS ORDERED: magnesium 4gm in 100ml NS 100 ML IV PRN (09:35)
[2020-02-18] MEDS ORDERED: magnesium Cl slow-release 64mg tablet PO PRN (09:35)
--- NOTE | 2020-02-18 11:55 | NUR ---
Dr Barbosa notified of paracentesis result. No new orders.
[2020-02-18 12:00] VITALS: BP 96/59
[2020-02-18] MEDS ORDERED: furosemide 10 MG/1 ML 10ml inj IV ONE (12:45)
--- NOTE | 2020-02-18 14:52 | NUR ---
PAGER ID: [phone] MESSAGE: RE: [id number] Tri [facility]es ordered IVP, BP at 1230 was 96/59, HR 100.....BP at 1400 was 99/61, HR 100. Do you still want pt to have the Lasix? Thank you, Arianne [facility] [phone] Addendum: 02/18/20 at 1455 by America Forrest RN PAGER ID: [phone] MESSAGE: RE: [id number] Mary Pt's urine output has been 350cc martita urine this shift. Thank you, Arianne penny [phone] Surgical
--- NOTE | 2020-02-18 15:49 | NUR ---
F/u (02/17): Pt has Easy to Chew 7/Pudding extremely thick diet ordered without MANAGER CHANNEL BSS this admit. Likely error. ANA LUISA recommended MANAGER CHANNEL BSS at this time for optimal texture modifications if needed; notified. Addendum: 02/18/20 at 1550 by Luis Antonio [address]w RD Amended: Links added.
--- NOTE | 2020-02-18 16:25 | NUR ---
PAGER ID: [phone] MESSAGE: 2nd Request RE:[id number], Tri Estes IV Lasix ordered. Pt's BP at 1230 was 96/59, HR 100, BP at 1430 was 99/61, HR 100. Pts urine output has been 350cc martita urine. Do you still want the Lasix given? thank you, Arianne [phone]
--- NOTE | 2020-02-18 19:00 | NUR ---
Problems reprioritized. Patient report given, questions answered & plan of care reviewed with Sushma SINCLAIR.
--- NOTE | 2020-02-18 19:01 | NUR ---
Patient in room MAT[facility]W 345. I have received report from OLAYINKA SINCLAIR and had the opportunity to ask questions and assume patient care.
[2020-02-18 20:00] VITALS: BP 102/63
[2020-02-19] VITALS: BP 97/63
[2020-02-19] MEDS: ipratropium/albuterol 3ml nebule NEB SCH ×2 (03:00→07:00)
[2020-02-19 06:13] LABS: BASOPHILS # (AUTO) 0.1 X10'3 (0-0.2); BASOPHILS % (AUTO) 0.3 % (0-1); EOSINOPHILS # (AUTO) 0.1 X10'3 (0-0.9); EOSINOPHILS % (AUTO) 0.5 % (0-6); HEMATOCRIT 30.4 % (35.0-45.0); HEMOGLOBIN 10.2 g/dl (12.0-16.0); LYMPHOCYTES % (AUTO) 9.8 % (21-51); MEAN CORPUSCULAR HEMOGLOBIN 34.5 PG (27.0-31.0); MEAN CORPUSCULAR HGB CONC 33.6 g/dL (33.0-36.5); MEAN CORPUSCULAR VOLUME 102.5 FL (78-98); MEAN PLATELET VOLUME 7.9 FL (7.4-10.4); MONOCYTES # (AUTO) 2.1 X10'3 (0-0.9); MONOCYTES % (AUTO) 10.2 % (2-12); NEUTROPHILS # (AUTO) 16.1 X10'3 (1.8-7.7); NEUTROPHILS % (AUTO) 79.2 % (42-75); PLATELET COUNT 78 X10'3 (140-440); RED BLOOD COUNT 2.97 X10'6 (4.20-5.60); RED CELL DISTRIBUTION WIDTH 16.8 % (11.5-14.5); WHITE BLOOD COUNT 20.3 X10'3 (4.5-11.0)
[2020-02-19 06:20] LABS: PARTIAL THROMBOPLASTIN TIME 72 SECONDS (22-32)
[2020-02-19 06:22] LABS: ALANINE AMINOTRANSFERASE 14 U/L (12-78); ALBUMIN 2.6 G/DL (3.4-5.0); ALBUMIN/GLOBULIN RATIO 0.9 (1.1-1.5); ALKALINE PHOSPHATASE 144 IU/L (46-116); ANION GAP 8 (8-16); ASPARTATE AMINO TRANSFERASE 75 U/L (10-37); BLOOD UREA NITROGEN 10 MG/DL (7-18); CALCIUM 7.7 MG/DL (8.5-10.1); CHLORIDE 102 MMOL/L (99-107); GLUCOSE 89 MG/DL (70-104); MAGNESIUM 2.2 MG/DL (1.5-2.4); PHOSPHORUS 2.7 MG/DL (2.3-4.5); POTASSIUM 3.8 MMOL/L (3.5-5.1); SODIUM 131 MMOL/L (135-145); TOTAL CARBON DIOXIDE 20.6 MMOL/L (24-32); TOTAL PROTEIN 5.6 G/DL (6.4-8.2); eGFR > 90 ML/MIN
--- NOTE | 2020-02-19 06:22 | NUR ---
CALLED DR. CHAPA AND WAS INFORMED ABOUT CRITICAL APTT 72 NO NEW ORDERS MADE.
--- NOTE | 2020-02-19 06:30 | NUR ---
Problems reprioritized. Patient report given, questions answered & plan of care reviewed with AAKASH SINCLAIR.
[2020-02-19 08:00] VITALS: BP 120/67
[2020-02-19] MEDS: K and/or MAG REPLACEMENT MC SCH (08:00)
[2020-02-19] MEDS: magnesium hydroxide 30ml (MOM) UD suspension PO SCH (08:00)
[2020-02-19 08:15] LABS: ANISOCYTOSIS 1+; PLATELET ESTIMATE DECREASED
[2020-02-19 08:17] LABS: BURR CELLS 1+; SCHISTOCYTES FEW
[2020-02-19] MEDS: lactobacillus rhamnosus 10,000 MMU CELLS/CAPSULE PO SCH (09:04)
[2020-02-19] MEDS: amox tr/potassium clavulanate 875/125mg TAB PO SCH (09:04)
[2020-02-19] MEDS: multivitamins, therapeutics tablet PO SCH (09:04)
[2020-02-19] MEDS: thiamine 100mg tablet PO SCH (09:04)
[2020-02-19] MEDS: pantoprazole 40mg Tablet.DR PO SCH (09:04)
--- NOTE | 2020-02-19 10:24 | NUR ---
MORNING SVN missed-pt. refused
[2020-02-19 11:00] VITALS: BP 106/70
[2020-02-19] MEDS ORDERED: AMOX500C2 PO (12:16)
[2020-02-19] MEDS ORDERED: CLAR500T22 PO (12:16)
[2020-02-19] MEDS ORDERED: OXYC-658 PO ×2 (12:16→12:17)
[2020-02-19] MEDS ORDERED: OMEP-50 PO (12:16)
--- NOTE | 2020-02-19 14:35 | NUR ---
PATIENT STABLE AND APPROPRIATE FOR DISCHARGE HOME. PICKED UP VIA [employer]. PATIENTS SON IS WAITING AT HOME FOR PATIENT TO ARRIVE HOME. PICC LINE REMOVED, ALL BELONGINGS TAKEN FROM ROOM. NEW PRESCRIPTIONS TRANSMITTED TO [facility] IN [place], PAIN PRESCRIPTION GIVEN TO PATIENT. FRONT WHEEL WALKER DELIVERED TO PATIENT. DISCHARGE INSTRUCTIONS AND EDUCATION GIVEN AND REVIEWED WITH PATIENT, ALL QUESTIONS ANSWERED.
== END 2020-02-19 14:21 | disposition home health service (06) | DRG 710 ==
LOC: ER 06:16 → UNDOADMIN 07:39 → ED HOLD 07:39 → EDBEDREQSVC 10:38 → CICU 2S 11:14 → PCU 3S 02-13 14:29 → SUR 3N 02-15 15:37
PROVIDERS: ADMIT Internal Medicine Critical Care Medicine; ATTEND Internal Medicine Critical Care Medicine
PROC: 30233M1 Transfusion of Nonautologous Plasma Cryoprecipitate into Peripheral Vein, Percutaneous Approach (ICD-10-PCS; 2020-02-10)
PROC: 30233L1 Transfusion of Nonautologous Fresh Plasma into Peripheral Vein, Percutaneous Approach (ICD-10-PCS; 2020-02-10)
PROC: 30233K1 Transfusion of Nonautologous Frozen Plasma into Peripheral Vein, Percutaneous Approach (ICD-10-PCS; 2020-02-10)
PROC: 02HV33Z Insertion of Infusion Device into Superior Vena Cava, Percutaneous Approach (ICD-10-PCS; 2020-02-10)
PROC: 0DU947Z Supplement Duodenum with Autologous Tissue Substitute, Percutaneous Endoscopic Approach (ICD-10-PCS; principal; 2020-02-10 14:15)
PROC: 30233N1 Transfusion of Nonautologous Red Blood Cells into Peripheral Vein, Percutaneous Approach (ICD-10-PCS; 2020-02-11)
PROC: 30233R1 Transfusion of Nonautologous Platelets into Peripheral Vein, Percutaneous Approach (ICD-10-PCS; 2020-02-12)
PROC: 0W9G3ZZ Drainage of Peritoneal Cavity, Percutaneous Approach (ICD-10-PCS; 2020-02-16)
PROC: 0W9G3ZZ Drainage of Peritoneal Cavity, Percutaneous Approach (ICD-10-PCS; 2020-02-18)
DX: A41.9 Sepsis, unspecified organism (principal); D68.9 Coagulation defect, unspecified; E87.1 Hypo-osmolality and hyponatremia; J44.9 Chronic obstructive pulmonary disease, unspecified; K27.4 Chronic or unspecified peptic ulcer, site unspecified, with hemorrhage; K70.31 Alcoholic cirrhosis of liver with ascites; Z87.891 Personal history of nicotine dependence
CPT/HCPCS: 36415; 36430; 36573; 36600; 71045; 71046; 74177; 76705; 76937; 80047; 80048; 80053; 82140; 82150; 82803; 82948; 83036; 83605; 83690; 83735; 84100; 84443; 85008; 85018; 85025; 85610; 85730; 86677; 86885; 86900; 86901; 86920; 87081; 90732; 92508; 92616; 93308; 94640; 94667; 94668; 94760; 96374; 97110; 97116; 97161; 97530; 97535; 99291; A4215; A4618; A6402; A7000; C1758; C9113; C9290; C9399; G0378; J0694; J1170; J2001; J2060; J2212; J2250; J2270; J2405; J2543; J2597; J2704; J2710; J3010; J3411; J3430; J3475; J3480; J3490; J7030; J7040; J7060; J7120; P9012; P9016; P9035; P9045; P9047; P9059; Q9967

== ENCOUNTER 2020-03-05 14:51 | Inpatient (IN) | payer MEDICAID ==
[~2020-03-05] VITALS: Ht 152.4 cm; Wt 68.3 kg
[~2020-03-05 14:51] MED LIST: AMOX500C2 PO; CLAR500T22 PO; FURO-150 PO; NORepinephrine 8 MG in NS 250 ML BAG (32 mcg/ml) IV ONE; OMEP-50 PO; OXYC-658 PO; SPIR50TA5 PO; epiNEPHrine 0.1mg/ml 10ml syringe ONE; etomidate 2mg/ml inj. ONE; sodium bicarbonate (8.4%) 1 mEq/ml syringe ONE
[2020-03-05] MEDS ORDERED: piperacillin/tazo 3.375gm/50ml 50 ML IV ONE (15:10)
[2020-03-05] MEDS ORDERED: OXYC5CAP19 PO (15:15)
[2020-03-05] MEDS ORDERED: OMEP-50 PO (15:15)
[2020-03-05] MEDS ORDERED: VANCOmycin 1250MG/NS 250ml Bag 250 ML IV ONE (15:28)
[2020-03-05 15:31] LABS: BASOPHILS # (AUTO) 0.1 X10'3 (0-0.2); BASOPHILS % (AUTO) 0.4 % (0-1); EOSINOPHILS # (AUTO) 0.1 X10'3 (0-0.9); EOSINOPHILS % (AUTO) 0.4 % (0-6); HEMATOCRIT 26.6 % (35.0-45.0); LYMPHOCYTES % (AUTO) 6.4 % (21-51); MEAN CORPUSCULAR HEMOGLOBIN 35.5 PG (27.0-31.0); MEAN CORPUSCULAR VOLUME 104.4 FL (78-98); MEAN PLATELET VOLUME 7.1 FL (7.4-10.4); MONOCYTES # (AUTO) 0.8 X10'3 (0-0.9); NEUTROPHILS % (AUTO) 87.8 % (42-75); PLATELET COUNT 60 X10'3 (140-440); RED BLOOD COUNT 2.54 X10'6 (4.20-5.60); RED CELL DISTRIBUTION WIDTH 18.3 % (11.5-14.5); WHITE BLOOD COUNT 15.9 X10'3 (4.5-11.0)
[2020-03-05 15:32] LABS: URINE HCG NEGATIVE (NEG)
[2020-03-05 15:33] LABS: CLARITY,URINE SLIGHTLY CLOUDY (Clear); COLOR,URINE YELLOW (Yellow); GLUCOSE, URINE NEGATIVE (Neg); KETONES,URINE NEGATIVE (Neg); LEUKOCYTE ESTERASE ,URINE NEGATIVE (Neg); NITRITES, URINE NEGATIVE (Neg); OCCULT BLOOD,URINE NEGATIVE (Neg); PROTEIN,URINE NEGATIVE (Neg); UROBILINOGEN,URINE 0.2 E.U/dL (0.2-1.0)
[2020-03-05] MEDS ORDERED: succinylcholine 20mg/ml inj IV ONE (15:33)
[2020-03-05 15:35] LABS: UA COLLECTION TYPE FOLEY CATH
[2020-03-05 15:40] LABS: HYALINE CASTS >30 /LPF (NEGATIVE)
[2020-03-05 15:49] LABS: ALANINE AMINOTRANSFERASE 47 U/L (12-78); ALBUMIN 1.8 G/DL (3.4-5.0); ALKALINE PHOSPHATASE 131 IU/L (46-116); ANION GAP 16 (8-16); ASPARTATE AMINO TRANSFERASE 125 U/L (10-37); BILIRUBIN,TOTAL 7.2 MG/DL (0.1-1.0); BLOOD UREA NITROGEN 18 MG/DL (7-18); BUN/CREATININE RATIO 13.1 (6.6-38.0); CHLORIDE 101 MMOL/L (99-107); CREATININE 1.37 MG/DL (0.40-0.90); GLUCOSE 64 MG/DL (70-104); MAGNESIUM 1.5 MG/DL (1.5-2.4); SODIUM 137 MMOL/L (135-145); TOTAL CARBON DIOXIDE 20.2 MMOL/L (24-32); eGFR 40 ML/MIN
[2020-03-05 15:50] LABS: ALBUMIN/GLOBULIN RATIO 0.4 (1.1-1.5); TOTAL PROTEIN 5.9 G/DL (6.4-8.2)
[2020-03-05 15:51] LABS: POTASSIUM 2.8 MMOL/L (3.5-5.1)
[2020-03-05] MEDS ORDERED: MIDAZolam 5mg/ml 2ml vial ONE (15:57)
[2020-03-05] MEDS ORDERED: fentaNYL/PF 50MCG/1 ML 2ML syringe ONE (15:58)
--- NOTE | 2020-03-05 15:59 | NUR ---
1538: 79/46, hr 54,34.7, Dr. Mei at bedside,RT Mak performing bvm,peep 5 1540:epi 100mcg, with thready pr 38bpm,bvm 1541:no palpable pulse,cpr initiated,continues with bvm 1543: bicarb 1 amp 67/10, 97hr,34.7 temp 1545: radial pulse 90bpm with palpable brachial pulse. 1546:epi 100mcg, with palpable brachial pulse 102,81%, 60/31, 34.7 temp,bvm 1548:100mch of epi administered 1549:161/90, 107hr, 100% bvm 1550:100mch epi,bvm 1549:161/90,107hr,100%,37.4 bvm 1550: 100mcg fentanyl vontinue with bvm 1553:147/71,105,100% bvm 1555:144/79,104hr 98% bvm,etomidate 10mg,succ 120mg 1557:Md performing intubation 21cm to teeth,+color change,equal breathsounds,7.5ett 1558: desat 92-93%,135/73,104 hr 1601: versed 2mg and fentanyl 50 mch administered, BP 119/72,100%,peep 5,34.6 temp, hr 104 vent rate 12 f102 100%. 1611: radiology at bedside.sating 86% peep changed to 7 1618:98/64mmhg,hr 103,peep 9,fi02 100%,rate 20, 94% saturation.
[2020-03-05] MEDS ORDERED: normal saline 1000ml 1,000 ML IV ONE (16:00)
[2020-03-05] MEDS ORDERED: iohexol 350MG/ML 100ml bottle IV ONE (16:03)
[2020-03-05 16:10] LABS: SQUAMOUS EPITHELIAL CELL,UR MANY /LPF (FEW)
[2020-03-05 16:12] LABS: BACTERIA,URINE FEW /HPF (Neg); RBC,URINE 0-2 /HPF (0-2)
[2020-03-05 16:18] LABS: COARSE GRANULAR CAST 0-3 /LPF (NEGATIVE); RENAL CELLS, URINE FEW /HPF; TRANSITIONAL EPI CELLS,URINE FEW /HPF; WBC,URINE 0-4 /HPF (0-4)
[2020-03-05] MEDS: midazolam 100mg in NS 100ml 100 ML IV SCH (16:19)
[2020-03-05] MEDS ORDERED: magnesium 2GM in 50ml NS 50 ML IV ONE (16:20)
[2020-03-05] MEDS: FENTANYL-0.9 % NACL/PF 100 ML IV PRN (16:27)
--- NOTE | 2020-03-05 16:30 | NUR ---
versed increased to 2mg.
[2020-03-05 16:31] LABS: ABG BASE EXCESS -13.1 mmol/L (-2.0-2.0); ABG HCO3 16.4 mmol/L (22.0-26.0); ABG OXYGEN SATURATION 89.2 % (94-97); ABG PO2 (T) 85.5 mmHg (75.0-100.0); ALLEN'S TEST POSITIVE; FMetHb 0.1 % (0.0-1.5); FO2Hb 88.2 % (94-97); PEEP 9 cm H2O; RESPIRATORY RATE 14 b/min; TIDAL VOLUME 300 mL; TOTAL HEMOGLOBIN 9.6 G/dl (12.0-16.0)
[2020-03-05] MEDS: potassium Cl 10 mEq/100mL bag IV SCH ×2 (16:46→19:45)
--- NOTE | 2020-03-05 16:51 | NUR ---
Mag and Potassium paused to allow CT IV access for contrast.
--- NOTE | 2020-03-05 16:58 | NUR ---
RN called from CT, requesting to increase Versed per protocol. Increased to 4mg/hr
[2020-03-05] MEDS ORDERED: NORepinephrine 8mg/ 250ml NS 250 ML IV PRN (17:23)
[2020-03-05] MEDS: NORepinephrine 8mg/ 250ml NS 250 ML IV PRN (17:27)
--- NOTE | 2020-03-05 17:41 | NUR ---
vent readings: fi02 100%,peep 15, rate 14,Dr. Johns at bedside.
[2020-03-05 17:52] LABS: PLATELET ESTIMATE DECREASED; TOTAL CELLS COUNTED 100
[2020-03-05 17:53] LABS: TOXIC GRANULATION 2+
[2020-03-05] MEDS: normal saline 1000ml 1,000 ML IV SCH (17:55)
[2020-03-05] MEDS ORDERED: CISatracurium besylate inj. 100 MG in normal saline 100ml IV soln 90 ML IV PRN (17:55)
[2020-03-05] MEDS ORDERED: LIDOcaine 2% 10ml TOPICAL JELLY (Urojet) TP ONE (17:55)
[2020-03-05] MEDS ORDERED: CISatracurium **Bolus** 2 mg/ml inj IV PRN (17:55)
[2020-03-05] MEDS ORDERED: Insulin Reg/NS 100units/100mL 100 ML IV SCH (17:55)
[2020-03-05] MEDS ORDERED: insulin Lispro (HumaLOG) vial - multi-dose SQ SCH (18:00)
[2020-03-05 18:05] LABS: SMUDGE CELLS 2+
[2020-03-05 18:07] LABS: ANISOCYTOSIS 2+
[2020-03-05 18:08] LABS: TOXIC VACUOLATION FEW
[2020-03-05] MEDS: heparin, porcine 5000 units/ml vial SQ SCH (20:00)
--- NOTE | 2020-03-05 20:48 | NUR ---
Medical Services Assistant Gregory notified of platelet level, heparin dose held
--- NOTE | 2020-03-05 20:52 | NUR ---
All insulins held for blood glucose=74
--- NOTE | 2020-03-05 21:20 | NUR ---
rt at bedside for repeat abg and sputum sample
[2020-03-05 21:36] LABS: ABG BASE EXCESS -8.9 mmol/L (-2.0-2.0); ABG HCO3 15.1 mmol/L (22.0-26.0); ABG OXYGEN SATURATION 99.4 % (94-97); ABG PCO2 (T) 23.9 mmHg (32.0-45.0); FCOHb 0.3 % (0.0-3.9); FMetHb 0.3 % (0.0-1.5); FO2Hb 98.8 % (94-97); PATIENT TEMPERATURE 34.8; PEEP 15 cm H2O; RESPIRATORY RATE 14 b/min; TIDAL VOLUME 450 mL; TOTAL HEMOGLOBIN 9.1 G/dl (12.0-16.0)
--- NOTE | 2020-03-05 23:07 | NUR ---
FiO2 reduced to 80% per respiratory
[2020-03-06] VITALS (18 sets, daily range): BP systolic 94–140; BP diastolic 46–73
[2020-03-06 00:11] LABS: GLUCOSE 77 MG/DL (70-104); SODIUM 136 MMOL/L (135-145)
[2020-03-06 00:12] LABS: ALBUMIN 1.7 G/DL (3.4-5.0); ANION GAP 16 (8-16); BLOOD UREA NITROGEN 17 MG/DL (7-18); BUN/CREATININE RATIO 12.3 (6.6-38.0); CALCIUM 7.8 MG/DL (8.5-10.1); CHLORIDE 102 MMOL/L (99-107); CREATININE 1.38 MG/DL (0.40-0.90); eGFR 40 ML/MIN
[2020-03-06] MEDS ORDERED: potassium Cl 20 mEq/100mL bag IV ONE (00:20)
[2020-03-06] MEDS: potassium Cl 20mEq/100mL bag 200 ML IV SCH ×2 (00:35→01:25)
[2020-03-06] MEDS ORDERED: vancomycin/NS 1 GM ADD-VANTAGE 250 ML IV SCH (03:30)
[2020-03-06] MEDS: FENTANYL-0.9 % NACL/PF 100 ML IV PRN ×2 (03:47→23:18)
[2020-03-06 03:56] LABS: ABG BASE EXCESS -9.4 mmol/L (-2.0-2.0); ABG HCO3 14.3 mmol/L (22.0-26.0); ABG OXYGEN SATURATION 96.9 % (94-97); ABG PCO2 (T) 23.2 mmHg (32.0-45.0); ABG PO2 (T) 91.6 mmHg (75.0-100.0); FCOHb 1.1 % (0.0-3.9); FMetHb 0.3 % (0.0-1.5); FO2Hb 95.5 % (94-97); PATIENT TEMPERATURE 36.1; PEEP 12 cm H2O; RESPIRATORY RATE 14 b/min; TIDAL VOLUME 450 mL; TOTAL HEMOGLOBIN 8.6 G/dl (12.0-16.0)
[2020-03-06] MEDS ORDERED: sodium bicarbonate (8.4%) 1 mEq/ml syringe IV ONE (04:00)
[2020-03-06] MEDS ORDERED: magnesium 4gm in 100ml NS 100 ML IV PRN (04:45)
[2020-03-06] MEDS ORDERED: potassium Cl 20 mEq SR tablet PO PRN ×2 (04:45)
[2020-03-06] MEDS ORDERED: magnesium 2GM in 50ml NS 50 ML IV PRN (04:45)
[2020-03-06] MEDS ORDERED: potassium Cl 20mEq/100mL bag 100 ML IV PRN (04:45)
--- NOTE | 2020-03-06 05:30 | NUR ---
RN Note -admission received pt from ED
[2020-03-06 05:38] LABS: PARTIAL THROMBOPLASTIN TIME 77 SECONDS (22-32)
[2020-03-06 06:10] LABS: ALBUMIN 1.7 G/DL (3.4-5.0); ANION GAP 16 (8-16); BLOOD UREA NITROGEN 18 MG/DL (7-18); BUN/CREATININE RATIO 12.3 (6.6-38.0); CALCIUM 7.8 MG/DL (8.5-10.1); CHLORIDE 104 MMOL/L (99-107); CREATINE KINASE 30 U/L (26-192); CREATININE 1.46 MG/DL (0.40-0.90); GLUCOSE 68 MG/DL (70-104); MAGNESIUM 1.8 MG/DL (1.5-2.4); SODIUM 138 MMOL/L (135-145); TOTAL CARBON DIOXIDE 18.4 MMOL/L (24-32); TROPONIN I 0.08 NG/ML (0.0-0.05); eGFR 37 ML/MIN
[2020-03-06 06:10] LABS: BASOPHILS # (AUTO) 0.1 X10'3 (0-0.2); BASOPHILS % (AUTO) 0.5 % (0-1); EOSINOPHILS # (AUTO) 0.2 X10'3 (0-0.9); EOSINOPHILS % (AUTO) 1.2 % (0-6); HEMATOCRIT 25.9 % (35.0-45.0); HEMOGLOBIN 8.7 g/dl (12.0-16.0); LYMPHOCYTES # (AUTO) 1.6 X10'3 (1.1-4.8); LYMPHOCYTES % (AUTO) 8.7 % (21-51); MEAN CORPUSCULAR HEMOGLOBIN 35.4 PG (27.0-31.0); MEAN CORPUSCULAR HGB CONC 33.7 g/dL (33.0-36.5); MEAN CORPUSCULAR VOLUME 105.1 FL (78-98); MEAN PLATELET VOLUME 7.9 FL (7.4-10.4); MONOCYTES % (AUTO) 5.1 % (2-12); NEUTROPHILS # (AUTO) 15.9 X10'3 (1.8-7.7); NEUTROPHILS % (AUTO) 84.5 % (42-75); PLATELET COUNT 83 X10'3 (140-440); RED BLOOD COUNT 2.46 X10'6 (4.20-5.60); RED CELL DISTRIBUTION WIDTH 18.2 % (11.5-14.5); WHITE BLOOD COUNT 18.8 X10'3 (4.5-11.0)
[2020-03-06 06:15] LABS: POTASSIUM 3.7 MMOL/L (3.5-5.1)
[2020-03-06] MEDS: NORepinephrine 8mg/ 250ml NS 250 ML IV PRN ×7 (06:54→23:17)
[2020-03-06] MEDS: normal saline 1000ml 1,000 ML IV SCH (07:02)
[2020-03-06] MEDS: heparin, porcine 5000 units/ml vial SQ SCH ×2 (07:28→20:00)
[2020-03-06] MEDS: azithromycin/NS 500mg/250ml 250 ML IV SCH (07:29)
[2020-03-06] MEDS: dextrose 50%-water 50ml dispensing syringe IV PRN (08:13)
--- NOTE | 2020-03-06 08:21 | NUR ---
Initial: Pt presented to ED with c/o abdominal pain and SOB, coded in ED and intubated. Per Harp Maker note patient with diffuse pulmonary infiltrates, ARDS protocol and targeted temperature therapy. No current nutrition support given. After rewarmed and if prolonged intubation patient would benefit from nutrition support to meet nutrition needs on vent. Recommend: 1. IF TF while intubated, would recommend vital AF at 60 ml/hr, would provide total volume of 1440 ml, total 1728 calories, 108 g protein, and 1168 ml water. 2. IF TF, prealbumin q sunday/, daily wts 3. When extubated, advance diet as medically indicated to regular 4. Bowel care as needed Addendum: 03/06/20 at [address] Amended: Links added.
--- NOTE | 2020-03-06 11:00 | NUR ---
Ask Dr. Johns for repeated lab work as the Lactic acid, Troponin and PTT has been high. He said to wait for now. Order noted.
[2020-03-06] MEDS: piperacillin/tazo 3.375gm/50ml 50 ML IV SCH ×2 (14:59→20:25)
[2020-03-06 15:20] LABS: PARTIAL THROMBOPLASTIN TIME 75 SECONDS (22-32)
--- NOTE | 2020-03-06 15:59 | NUR ---
Dr Johns aware of Temp=34.6. Reported lab results to Dr. Johns
[2020-03-06 16:39] LABS: CREATINE KINASE 33 U/L (26-192); TROPONIN I 0.07 NG/ML (0.0-0.05)
--- NOTE | 2020-03-06 18:27 | NUR ---
Doppler pulses, Tender, hard to touch and big abdomen, No Urine output since 9am. Temp in low 30s (34), Lactic Acid coming down. Dr. Johns aware of all the above.
--- NOTE | 2020-03-06 18:29 | NUR ---
Problems reprioritized. Patient report given, questions answered & plan of care reviewed with hourly shift RN.
--- NOTE | 2020-03-06 18:30 | NUR ---
Patient in room ICU 2038. I have received report from YAHIR Santa and had the opportunity to ask questions and assume patient care. Patient is intubated and sedated, I will continue to monitor.
[2020-03-06] MEDS: potassium Cl 10 mEq/100mL bag IV SCH ×2 (19:16→19:19)
[2020-03-06] MEDS: lactobacillus rhamnosus 10,000 MMU CELLS/CAPSULE PO SCH (20:00)
[2020-03-07] VITALS (24 sets, daily range): BP systolic 90–120; BP diastolic 48–61
[2020-03-07] MEDS: midazolam 100mg in NS 100ml 100 ML IV SCH (00:49)
[2020-03-07] MEDS: NORepinephrine 8mg/ 250ml NS 250 ML IV PRN ×8 (01:46→22:23)
[2020-03-07 03:08] LABS: BASOPHILS # (AUTO) 0.1 X10'3 (0-0.2); BASOPHILS % (AUTO) 0.7 % (0-1); EOSINOPHILS # (AUTO) 0.1 X10'3 (0-0.9); EOSINOPHILS % (AUTO) 0.6 % (0-6); HEMATOCRIT 26.2 % (35.0-45.0); HEMOGLOBIN 8.8 g/dl (12.0-16.0); LYMPHOCYTES % (AUTO) 11.6 % (21-51); MEAN CORPUSCULAR HEMOGLOBIN 35.2 PG (27.0-31.0); MEAN CORPUSCULAR HGB CONC 33.6 g/dL (33.0-36.5); MEAN CORPUSCULAR VOLUME 104.8 FL (78-98); MEAN PLATELET VOLUME 7.1 FL (7.4-10.4); MONOCYTES # (AUTO) 0.6 X10'3 (0-0.9); MONOCYTES % (AUTO) 3.7 % (2-12); NEUTROPHILS # (AUTO) 14.2 X10'3 (1.8-7.7); NEUTROPHILS % (AUTO) 83.4 % (42-75); PLATELET COUNT 64 X10'3 (140-440); RED CELL DISTRIBUTION WIDTH 18.1 % (11.5-14.5)
[2020-03-07 03:28] LABS: PARTIAL THROMBOPLASTIN TIME 78 SECONDS (22-32)
[2020-03-07 03:33] LABS: ALANINE AMINOTRANSFERASE 58 U/L (12-78); ALBUMIN 1.7 G/DL (3.4-5.0); ALBUMIN/GLOBULIN RATIO 0.4 (1.1-1.5); ALKALINE PHOSPHATASE 145 IU/L (46-116); ANION GAP 16 (8-16); ASPARTATE AMINO TRANSFERASE 154 U/L (10-37); BILIRUBIN,TOTAL 7.3 MG/DL (0.1-1.0); BLOOD UREA NITROGEN 20 MG/DL (7-18); BUN/CREATININE RATIO 10.7 (6.6-38.0); CALCIUM 7.9 MG/DL (8.5-10.1); CHLORIDE 106 MMOL/L (99-107); CREATINE KINASE 32 U/L (26-192); CREATININE 1.87 MG/DL (0.40-0.90); GLUCOSE 91 MG/DL (70-104); MAGNESIUM 1.8 MG/DL (1.5-2.4); POTASSIUM 3.4 MMOL/L (3.5-5.1); SODIUM 139 MMOL/L (135-145); TOTAL CARBON DIOXIDE 17.4 MMOL/L (24-32); TOTAL PROTEIN 5.8 G/DL (6.4-8.2); TROPONIN I 0.06 NG/ML (0.0-0.05); eGFR 28 ML/MIN
[2020-03-07 03:41] LABS: ABG BASE EXCESS -7.9 mmol/L (-2.0-2.0); ABG HCO3 15.7 mmol/L (22.0-26.0); ABG OXYGEN SATURATION 94.1 % (94-97); ABG PCO2 (T) 24.5 mmHg (32.0-45.0); ABG PO2 (T) 69.7 mmHg (75.0-100.0); FMetHb 0.1 % (0.0-1.5); PATIENT TEMPERATURE 35.6; PEEP 12 cm H2O; RESPIRATORY RATE 14 b/min; TIDAL VOLUME 450 mL; TOTAL HEMOGLOBIN 9.5 G/dl (12.0-16.0)
[2020-03-07] MEDS: VANCOMYCIN IV SCH (04:25)
[2020-03-07] MEDS: NORMAL SALINE IV SCH (04:25)
--- NOTE | 2020-03-07 06:26 | NUR ---
Problems reprioritized. Patient report given, questions answered & plan of care reviewed with YAHIR Santa.
[2020-03-07] MEDS: azithromycin/NS 500mg/250ml 250 ML IV SCH (07:08)
[2020-03-07] MEDS: lactobacillus rhamnosus 10,000 MMU CELLS/CAPSULE PO SCH ×2 (07:08→20:00)
[2020-03-07] MEDS: heparin, porcine 5000 units/ml vial SQ SCH ×2 (08:00→20:00)
[2020-03-07] MEDS: piperacillin/tazo 3.375gm/50ml 50 ML IV SCH ×2 (08:36→15:04)
[2020-03-07] MEDS ORDERED: vasopressin inj. 40 UNIT in normal saline 50ml IV soln 38 ML IV PRN (09:50)
[2020-03-07 10:16] LABS: TROPONIN I < 0.04 NG/ML (0.0-0.05)
[2020-03-07 10:18] LABS: CREATINE KINASE 40 U/L (26-192)
--- NOTE | 2020-03-07 11:10 | NUR ---
Js Consult: Js 9; prior abdomen surgical wound w/ skin otherwise intact per EMR. Addendum: 03/07/20 at [address]10 [address] Amended: Links added.
[2020-03-07] MEDS: dextrose 50%-water 50ml dispensing syringe IV PRN (13:28)
[2020-03-07] MEDS: mineral oil/petrolatum ophthal oint EACHEYE SCH ×2 (13:28→20:31)
--- NOTE | 2020-03-07 17:40 | NUR ---
No urine output since 7am, Temp in low 34s, On 1.9 MCG of Levophed, blood pressure in 110s. CT result from last evening available. Dr. Johns aware of all above. He spoke with Son and asked him to come and visit the pt, but the son never came.
--- NOTE | 2020-03-07 18:19 | NUR ---
Problems reprioritized. Patient report given, questions answered & plan of care reviewed with Monika.
--- NOTE | 2020-03-07 18:20 | NUR ---
Patient in room ICU 2038. I have received report from YAHIR Santa and had the opportunity to ask questions and assume patient care. Patient gravely ill, son at the bedside and options being discussed. I will continue to monitor.
--- NOTE | 2020-03-07 18:26 | NUR ---
Rocky Lopes is at bedside, decisions need to be made, consent for TDC and Thoracentisis being tap
--- NOTE | 2020-03-07 18:28 | NUR ---
Sylvain and TDC consent being talked over by family, per son Moses the patient did not want tube feed started. Corina Kapoor spoke with son over the phone about options, daughter and brother are down stairs and due to grave condition we will allow them to come up one at a time. Possible comfort care being discussed.
[2020-03-07] MEDS: FENTANYL-0.9 % NACL/PF 100 ML IV PRN (19:02)
[2020-03-07] MEDS: pantoprazole 40 MG vial IV SCH (20:30)
[2020-03-08] VITALS (24 sets, daily range): BP systolic 65–127; BP diastolic 43–66
[2020-03-08] MEDS: piperacillin/tazo 3.375gm/50ml 50 ML IV SCH ×3 (00:12→16:05)
[2020-03-08] MEDS: NORepinephrine 8mg/ 250ml NS 250 ML IV PRN ×4 (01:19→08:55)
[2020-03-08] MEDS: mineral oil/petrolatum ophthal oint EACHEYE SCH ×4 (02:39→19:32)
[2020-03-08 02:47] LABS: BASOPHILS # (AUTO) 0.1 X10'3 (0-0.2); BASOPHILS % (AUTO) 0.9 % (0-1); EOSINOPHILS # (AUTO) 0.2 X10'3 (0-0.9); EOSINOPHILS % (AUTO) 1.2 % (0-6); HEMATOCRIT 25.6 % (35.0-45.0); HEMOGLOBIN 8.5 g/dl (12.0-16.0); LYMPHOCYTES # (AUTO) 1.5 X10'3 (1.1-4.8); LYMPHOCYTES % (AUTO) 10.3 % (21-51); MEAN CORPUSCULAR HEMOGLOBIN 35.1 PG (27.0-31.0); MEAN CORPUSCULAR HGB CONC 33.4 g/dL (33.0-36.5); MEAN CORPUSCULAR VOLUME 105.3 FL (78-98); MEAN PLATELET VOLUME 7.9 FL (7.4-10.4); MONOCYTES # (AUTO) 0.5 X10'3 (0-0.9); MONOCYTES % (AUTO) 3.2 % (2-12); NEUTROPHILS # (AUTO) 12.1 X10'3 (1.8-7.7); NEUTROPHILS % (AUTO) 84.4 % (42-75); RED BLOOD COUNT 2.43 X10'6 (4.20-5.60); RED CELL DISTRIBUTION WIDTH 18.5 % (11.5-14.5); WHITE BLOOD COUNT 14.3 X10'3 (4.5-11.0)
[2020-03-08 02:56] LABS: PARTIAL THROMBOPLASTIN TIME 77 SECONDS (22-32)
[2020-03-08 03:02] LABS: ALANINE AMINOTRANSFERASE 58 U/L (12-78); ALBUMIN 1.6 G/DL (3.4-5.0); ALKALINE PHOSPHATASE 141 IU/L (46-116); ANION GAP 15 (8-16); ASPARTATE AMINO TRANSFERASE 155 U/L (10-37); BILIRUBIN,TOTAL 6.8 MG/DL (0.1-1.0); BLOOD UREA NITROGEN 25 MG/DL (7-18); CALCIUM 8.2 MG/DL (8.5-10.1); CHLORIDE 109 MMOL/L (99-107); CREATININE 2.27 MG/DL (0.40-0.90); GLUCOSE 84 MG/DL (70-104); SODIUM 141 MMOL/L (135-145); TOTAL CARBON DIOXIDE 17.3 MMOL/L (24-32); eGFR 22 ML/MIN
[2020-03-08 03:03] LABS: ALBUMIN/GLOBULIN RATIO 0.4 (1.1-1.5); PHOSPHORUS 4.6 MG/DL (2.3-4.5); POTASSIUM 3.4 MMOL/L (3.5-5.1); TOTAL PROTEIN 5.7 G/DL (6.4-8.2)
[2020-03-08 03:51] LABS: ABG BASE EXCESS -10.5 mmol/L (-2.0-2.0); ABG HCO3 14.3 mmol/L (22.0-26.0); ABG OXYGEN SATURATION 94.1 % (94-97); ABG PCO2 (T) 24.5 mmHg (32.0-45.0); ABG PO2 (T) 65.5 mmHg (75.0-100.0); FCOHb 0.4 % (0.0-3.9); FMetHb 0.2 % (0.0-1.5); FO2Hb 93.5 % (94-97); PEEP 12 cm H2O; RESPIRATORY RATE 14 b/min; TIDAL VOLUME 450 mL; TOTAL HEMOGLOBIN 9.2 G/dl (12.0-16.0)
[2020-03-08] MEDS: VANCOMYCIN IV SCH (04:10)
[2020-03-08] MEDS: NORMAL SALINE IV SCH (04:10)
[2020-03-08 05:13] LABS: PLATELET COUNT 47 X10'3 (140-440)
--- NOTE | 2020-03-08 06:30 | NUR ---
Problems reprioritized. Patient report given, questions answered & plan of care reviewed with YAHIR Samson.
[2020-03-08 07:02] LABS: TOTAL CELLS COUNTED 100; TOXIC GRANULATION 2+; TOXIC VACUOLATION 2+
[2020-03-08 07:03] LABS: ANISOCYTOSIS 2+; PLATELET ESTIMATE DECREASED; POLYCHROMASIA FEW
[2020-03-08 07:04] LABS: BURR CELLS 1+; SMUDGE CELLS 1+
[2020-03-08] MEDS ORDERED: ADD VANTAGE IV PRN (07:40)
[2020-03-08] MEDS ORDERED: VANCOMYCIN IV PRN (07:40)
[2020-03-08] MEDS ORDERED: NS IV PRN (07:40)
[2020-03-08] MEDS: heparin, porcine 5000 units/ml vial SQ SCH ×2 (08:00→19:30)
[2020-03-08] MEDS ORDERED: ALBU18HF2 PO (08:11)
--- NOTE | 2020-03-08 08:28 | NUR ---
AWAITING PICC ORDER SIGNATURE FROM FOR PLACEMENT. Dayana VELASCO PICC RN
[2020-03-08] MEDS: azithromycin/NS 500mg/250ml 250 ML IV SCH (08:30)
[2020-03-08] MEDS: lactobacillus rhamnosus 10,000 MMU CELLS/CAPSULE PO SCH ×3 (08:30→19:30)
[2020-03-08] MEDS: pantoprazole 40 MG vial IV SCH ×2 (08:30→19:30)
--- NOTE | 2020-03-08 11:07 | NUR ---
F/u: at rounds reports pt family do not want feeding tube per pt wishes; pending discussion w/ family today regarding temporary nutrition support needs on vent and difference between temporary and long-term EN per CM. Addendum: 03/08/20 at 1108 by Luis Antonio [address] Amended: Links added.
--- NOTE | 2020-03-08 11:50 | NUR ---
PT HAVING PROCEDURE, OBTAINED CONSENT FROM FAMILY FOR PICC PLACEMENT BUT DUE TO OTHER STUDIES MAY NO BE ABLE TO PLACE PICC TODAY. RN WOLFGANG. Dayana VELASCO PICC RN
[2020-03-08] MEDS: NORepinephrine inj. 32 MG in normal saline 250ml IV soln 218 ML IV SCH ×2 (13:59→23:30)
[2020-03-08] MEDS: dextrose 50%-water 50ml dispensing syringe IV PRN ×2 (13:59→20:29)
[2020-03-08] MEDS ORDERED: CISatracurium besylate inj. 100 MG in normal saline 100ml IV soln 90 ML IV PRN (14:45)
[2020-03-08] MEDS ORDERED: heparin 1,000 units/ml 10ml inj IV ONE (16:50)
[2020-03-08] MEDS ORDERED: albumin (human) 25% 100ml IV 100 ML IV PRN (16:50)
[2020-03-08] MEDS ORDERED: epoetin 20,000 units/ml inj IV ONE (16:50)
[2020-03-08] MEDS ORDERED: heparin 1,000 units/ml 10ml inj HE ONE ×2 (16:50)
--- NOTE | 2020-03-08 18:19 | NUR ---
REPORT TO ROMI EN
[2020-03-08] MEDS ORDERED: lactulose 20gm/30ml cup PO PRN (18:20)
--- NOTE | 2020-03-08 18:20 | NUR ---
Patient in room ICU 2038. I have received report from YAHIR Samson and had the opportunity to ask questions and assume patient care. Patient still intubated/sedated and has started dialysis.
[2020-03-08 23:21] LABS: ABG BASE EXCESS -5.7 mmol/L (-2.0-2.0); ABG HCO3 18.5 mmol/L (22.0-26.0); ABG OXYGEN SATURATION 97.4 % (94-97); ABG PCO2 (T) 29.8 mmHg (32.0-45.0); ABG PO2 (T) 98.1 mmHg (75.0-100.0); ALLEN'S TEST POSITIVE; FCOHb 0.2 % (0.0-3.9); FMetHb 0.4 % (0.0-1.5); FO2Hb 96.8 % (94-97); PATIENT TEMPERATURE 35.8; PEEP 12 cm H2O; RESPIRATORY RATE 20 b/min; TIDAL VOLUME 400 mL; TOTAL HEMOGLOBIN 8.8 G/dl (12.0-16.0)
[2020-03-09] VITALS (24 sets, daily range): BP systolic 97–127; BP diastolic 49–59
[2020-03-09] MEDS: piperacillin/tazo 3.375gm/50ml 50 ML IV SCH ×2 (00:03→08:50)
[2020-03-09 02:30] LABS: EOSINOPHILS # (AUTO) 0.2 X10'3 (0-0.9); HEMOGLOBIN 7.9 g/dl (12.0-16.0); LYMPHOCYTES # (AUTO) 1.5 X10'3 (1.1-4.8); MEAN PLATELET VOLUME 7.3 FL (7.4-10.4); WHITE BLOOD COUNT 13.7 X10'3 (4.5-11.0)
[2020-03-09 02:33] LABS: BASOPHILS % (AUTO) 0.2 % (0-1); EOSINOPHILS % (AUTO) 1.5 % (0-6); HEMATOCRIT 23.1 % (35.0-45.0); LYMPHOCYTES % (AUTO) 10.8 % (21-51); MEAN CORPUSCULAR HEMOGLOBIN 34.9 PG (27.0-31.0); MEAN CORPUSCULAR VOLUME 102.8 FL (78-98); MONOCYTES # (AUTO) 0.4 X10'3 (0-0.9); MONOCYTES % (AUTO) 2.8 % (2-12); NEUTROPHILS # (AUTO) 11.6 X10'3 (1.8-7.7); NEUTROPHILS % (AUTO) 84.7 % (42-75); RED BLOOD COUNT 2.25 X10'6 (4.20-5.60); RED CELL DISTRIBUTION WIDTH 18.5 % (11.5-14.5)
[2020-03-09] MEDS: mineral oil/petrolatum ophthal oint EACHEYE SCH ×4 (02:33→19:40)
[2020-03-09 02:44] LABS: ALANINE AMINOTRANSFERASE 58 U/L (12-78); ALBUMIN 1.9 G/DL (3.4-5.0); ALBUMIN/GLOBULIN RATIO 0.5 (1.1-1.5); ALKALINE PHOSPHATASE 137 IU/L (46-116); ANION GAP 14 (8-16); ASPARTATE AMINO TRANSFERASE 150 U/L (10-37); BILIRUBIN,TOTAL 7.2 MG/DL (0.1-1.0); BLOOD UREA NITROGEN 17 MG/DL (7-18); BUN/CREATININE RATIO 8.7 (6.6-38.0); CALCIUM 8.2 MG/DL (8.5-10.1); CHLORIDE 104 MMOL/L (99-107); CREATININE 1.95 MG/DL (0.40-0.90); GLUCOSE 71 MG/DL (70-104); PHOSPHORUS 3.2 MG/DL (2.3-4.5); POTASSIUM 3.6 MMOL/L (3.5-5.1); SODIUM 139 MMOL/L (135-145); TOTAL PROTEIN 5.9 G/DL (6.4-8.2); eGFR 27 ML/MIN
[2020-03-09 02:45] LABS: PLATELET COUNT 29 X10'3 (140-440)
[2020-03-09] MEDS ORDERED: VANCOMYCIN LEVEL IV SCH (03:00)
[2020-03-09] MEDS: albuterol 2.5 MG/3 ML nebule NEB PRN ×2 (03:20→18:50)
[2020-03-09 03:59] LABS: PARTIAL THROMBOPLASTIN TIME 93 SECONDS (22-32)
[2020-03-09 04:07] LABS: ABG BASE EXCESS -6.4 mmol/L (-2.0-2.0); ABG HCO3 17.7 mmol/L (22.0-26.0); ABG OXYGEN SATURATION 96.7 % (94-97); ABG PCO2 (T) 30.2 mmHg (32.0-45.0); ABG PO2 (T) 96.2 mmHg (75.0-100.0); FCOHb 0.6 % (0.0-3.9); FMetHb 0.3 % (0.0-1.5); FO2Hb 95.8 % (94-97); PATIENT TEMPERATURE 37.5; PEEP 12 cm H2O; RESPIRATORY RATE 20 b/min; TIDAL VOLUME 400 mL; TOTAL HEMOGLOBIN 8.3 G/dl (12.0-16.0)
[2020-03-09 07:22] LABS: VANCOMYCIN,TROUGH 39.5 UG/ML (6.0-14.0)
[2020-03-09] MEDS: lactobacillus rhamnosus 10,000 MMU CELLS/CAPSULE PO SCH ×2 (08:05→19:40)
[2020-03-09] MEDS: dextrose 50%-water 50ml dispensing syringe IV PRN (08:05)
[2020-03-09] MEDS: pantoprazole 40 MG vial IV SCH ×2 (08:05→19:39)
[2020-03-09] MEDS: azithromycin/NS 500mg/250ml 250 ML IV SCH (08:06)
[2020-03-09] MEDS: NORepinephrine inj. 32 MG in normal saline 250ml IV soln 218 ML IV SCH (08:51)
[2020-03-09] MEDS ORDERED: levetiracetam inj 1,000 MG in normal saline 100ml IV soln 90 ML IV ONE (09:40)
[2020-03-09] MEDS ORDERED: hydrocortisone sod succ/PF 100mg/2ml inj. IV ONE (09:40)
--- NOTE | 2020-03-09 09:57 | NUR ---
TF Consult: Pt son agrees to TF following CM TC per EMR. Pt s/p TDC for HD w/ acute kidney failure. EN recs below; will monitor for EN tolerance and additional protein needs on HD. Recommend: 1. OGTF per MD using vital HP at 65ml/hr; to provide total volume of 1560ml, total 1560calories, 137g protein, and 1310ml water. 2. additional free water per production zone leader on HD 3. prealbumin q sunday/, daily wts 4. monitor for EN tolerance 5. routine bowel care 6. When extubated, advance diet as medically indicated to regular Addendum: 03/09/20 at [address] Amended: Links added.
[2020-03-09] MEDS: Dextrose 10%-water IV solution 1,000 ML IV SCH ×2 (10:24→20:27)
--- NOTE | 2020-03-09 10:49 | NUR ---
PER YONG JOHN MAY NOT WANT PICC, WILL CONFIRM AFTER ROUNDS AND PAGE IF NEEDED OR CANCELLED. Dayana VELASCO PICC RN
[2020-03-09 12:02] LABS: PLATELET COUNT 26 X10'3 (140-440)
[2020-03-09 12:09] LABS: LACTIC SEPSIS 5.3 MMOL/L (0.4-2.0)
[2020-03-09 12:27] LABS: PARTIAL THROMBOPLASTIN TIME 88 SECONDS (22-32)
[2020-03-09 12:28] LABS: D-DIMER > 35.20 MG/L FEU (0-0.50)
[2020-03-09] MEDS: metoclopramide 5 mg/ml inj IV SCH ×2 (14:41→19:40)
--- NOTE | 2020-03-09 14:49 | NUR ---
i called Dr Gomes at this time at Dr Mclaughlin request. dr gomes gave order to remove huma from midline abdomen, and remove stitch in upper R quadrant as well if still in place.
[2020-03-09] MEDS: midazolam 100mg in NS 100ml 100 ML IV SCH (16:05)
[2020-03-09] MEDS: hydrocortisone sod succ/PF 100mg/2ml inj. IV SCH (16:59)
--- NOTE | 2020-03-09 18:27 | NUR ---
Problems reprioritized. Patient report given, questions answered & plan of care reviewed with Monika SINCLAIR.
--- NOTE | 2020-03-09 18:38 | NUR ---
Patient in room ICU 2038. I have received report from YAHIR Ross and had the opportunity to ask questions and assume patient care. Patient still intubated and unresponsive, sedation off.
[2020-03-09] MEDS: ceFAZolin 1GM/D5W- ADD-VANTAGE 50 ML IV SCH (19:38)
[2020-03-09] MEDS: levetiracetam inj 500 MG in normal saline 100ml IV soln 95 ML IV SCH (19:39)
[2020-03-09] MEDS: vasopressin inj. 40 UNIT in normal saline 50ml IV soln 38 ML IV PRN (20:26)
[2020-03-10] VITALS (24 sets, daily range): BP systolic 98–137; BP diastolic 56–67
[2020-03-10] MEDS: hydrocortisone sod succ/PF 100mg/2ml inj. IV SCH ×3 (00:06→17:29)
[2020-03-10] MEDS: NORepinephrine inj. 32 MG in normal saline 250ml IV soln 218 ML IV SCH ×2 (01:04→21:25)
[2020-03-10] MEDS: mineral oil/petrolatum ophthal oint EACHEYE SCH ×4 (02:52→21:25)
[2020-03-10] MEDS: metoclopramide 5 mg/ml inj IV SCH ×4 (02:53→21:24)
[2020-03-10 02:57] LABS: BASOPHILS # (AUTO) 0.1 X10'3 (0-0.2); BASOPHILS % (AUTO) 0.4 % (0-1); EOSINOPHILS % (AUTO) 0.2 % (0-6); HEMOGLOBIN 7.2 g/dl (12.0-16.0); LYMPHOCYTES # (AUTO) 1.5 X10'3 (1.1-4.8); LYMPHOCYTES % (AUTO) 8.7 % (21-51); MEAN CORPUSCULAR HEMOGLOBIN 34.5 PG (27.0-31.0); MEAN CORPUSCULAR HGB CONC 33.1 g/dL (33.0-36.5); MEAN CORPUSCULAR VOLUME 104.2 FL (78-98); MEAN PLATELET VOLUME 8.9 FL (7.4-10.4); MONOCYTES # (AUTO) 0.6 X10'3 (0-0.9); MONOCYTES % (AUTO) 3.2 % (2-12); NEUTROPHILS # (AUTO) 15.4 X10'3 (1.8-7.7); NEUTROPHILS % (AUTO) 87.5 % (42-75); RED CELL DISTRIBUTION WIDTH 18.6 % (11.5-14.5); WHITE BLOOD COUNT 17.5 X10'3 (4.5-11.0)
[2020-03-10 03:09] LABS: ALANINE AMINOTRANSFERASE 55 U/L (12-78); ALBUMIN 1.7 G/DL (3.4-5.0); ALKALINE PHOSPHATASE 131 IU/L (46-116); ANION GAP 13 (8-16); ASPARTATE AMINO TRANSFERASE 127 U/L (10-37); BILIRUBIN,TOTAL 6.7 MG/DL (0.1-1.0); BLOOD UREA NITROGEN 23 MG/DL (7-18); BUN/CREATININE RATIO 8.7 (6.6-38.0); CALCIUM 8.3 MG/DL (8.5-10.1); CHLORIDE 103 MMOL/L (99-107); CREATININE 2.64 MG/DL (0.40-0.90); GLUCOSE 182 MG/DL (70-104); POTASSIUM 3.5 MMOL/L (3.5-5.1); SODIUM 136 MMOL/L (135-145); TOTAL CARBON DIOXIDE 20.1 MMOL/L (24-32); eGFR 19 ML/MIN
[2020-03-10 03:10] LABS: PARTIAL THROMBOPLASTIN TIME 84 SECONDS (22-32)
[2020-03-10 03:11] LABS: ALBUMIN/GLOBULIN RATIO 0.4 (1.1-1.5); PHOSPHORUS 3.4 MG/DL (2.3-4.5); TOTAL PROTEIN 5.8 G/DL (6.4-8.2)
[2020-03-10 03:15] LABS: HEMATOCRIT 21.9 % (35.0-45.0)
[2020-03-10 03:16] LABS: PLATELET COUNT 29 X10'3 (140-440)
[2020-03-10] MEDS: albuterol 2.5 MG/3 ML nebule NEB PRN ×2 (03:31→19:44)
[2020-03-10 03:45] LABS: ABG BASE EXCESS -7.2 mmol/L (-2.0-2.0); ABG HCO3 17.6 mmol/L (22.0-26.0); ABG OXYGEN SATURATION 95.8 % (94-97); ABG PCO2 (T) 33.2 mmHg (32.0-45.0); ABG PO2 (T) 91.8 mmHg (75.0-100.0); FCOHb 0.5 % (0.0-3.9); FMetHb 0.2 % (0.0-1.5); FO2Hb 95.1 % (94-97); PATIENT TEMPERATURE 37.6; PEEP 12 cm H2O; RESPIRATORY RATE 20 b/min; TIDAL VOLUME 400 mL; TOTAL HEMOGLOBIN 7.9 G/dl (12.0-16.0)
[2020-03-10 04:59] LABS: PLATELET ESTIMATE DECREASED
[2020-03-10 05:00] LABS: ANISOCYTOSIS 2+
[2020-03-10 05:01] LABS: SPHEROCYTES FEW; TARGET CELLS FEW
[2020-03-10 05:02] LABS: ACANTHOCYTES FEW
--- NOTE | 2020-03-10 06:30 | NUR ---
Problems reprioritized. Patient report given, questions answered & plan of care reviewed with YAHIR Hernandez.
[2020-03-10] MEDS ORDERED: lactulose 20gm/30ml cup OGT PRN (07:37)
[2020-03-10] MEDS ORDERED: POTASSIUM BICARB 20meq eff tab 20 MEQ TABLET.EFF OGT PRN ×2 (07:38)
[2020-03-10] MEDS: ceFAZolin 1GM/D5W- ADD-VANTAGE 50 ML IV SCH ×2 (09:01→21:24)
[2020-03-10] MEDS: levetiracetam inj 500 MG in normal saline 100ml IV soln 95 ML IV SCH (09:01)
[2020-03-10] MEDS: lactobacillus rhamnosus 10,000 MMU CELLS/CAPSULE OGT SCH ×2 (09:02→21:24)
[2020-03-10] MEDS: pantoprazole 40 MG vial IV SCH ×2 (09:02→21:24)
[2020-03-10] MEDS: vasopressin inj. 40 UNIT in normal saline 50ml IV soln 38 ML IV PRN (13:19)
--- NOTE | 2020-03-10 18:30 | NUR ---
Patient in room ICU 2038. I have received report from Mary SINCLAIR and had the opportunity to ask questions and assume patient care.
[2020-03-11] VITALS (23 sets, daily range): BP systolic 84–143; BP diastolic 51–72
[2020-03-11] MEDS: hydrocortisone sod succ/PF 100mg/2ml inj. IV SCH ×3 (00:08→14:44)
[2020-03-11] MEDS: metoclopramide 5 mg/ml inj IV SCH ×2 (01:59→09:10)
[2020-03-11] MEDS: mineral oil/petrolatum ophthal oint EACHEYE SCH ×4 (01:59→20:31)
[2020-03-11 03:17] LABS: BASOPHILS # (AUTO) 0.2 X10'3 (0-0.2); BASOPHILS % (AUTO) 0.8 % (0-1); EOSINOPHILS % (AUTO) 0.1 % (0-6); HEMATOCRIT 22.3 % (35.0-45.0); HEMOGLOBIN 7.5 g/dl (12.0-16.0); LYMPHOCYTES # (AUTO) 1.2 X10'3 (1.1-4.8); LYMPHOCYTES % (AUTO) 6.3 % (21-51); MEAN CORPUSCULAR HEMOGLOBIN 35.3 PG (27.0-31.0); MEAN CORPUSCULAR HGB CONC 33.8 g/dL (33.0-36.5); MEAN CORPUSCULAR VOLUME 104.5 FL (78-98); MEAN PLATELET VOLUME 7.2 FL (7.4-10.4); MONOCYTES # (AUTO) 0.5 X10'3 (0-0.9); MONOCYTES % (AUTO) 2.6 % (2-12); NEUTROPHILS # (AUTO) 17.7 X10'3 (1.8-7.7); NEUTROPHILS % (AUTO) 90.2 % (42-75); RED BLOOD COUNT 2.14 X10'6 (4.20-5.60); RED CELL DISTRIBUTION WIDTH 18.5 % (11.5-14.5); WHITE BLOOD COUNT 19.6 X10'3 (4.5-11.0)
[2020-03-11 03:32] LABS: ALANINE AMINOTRANSFERASE 25 U/L (12-78); ALBUMIN 1.7 G/DL (3.4-5.0); ALKALINE PHOSPHATASE 131 IU/L (46-116); ANION GAP 12 (8-16); ASPARTATE AMINO TRANSFERASE 85 U/L (10-37); BILIRUBIN,TOTAL 6.7 MG/DL (0.1-1.0); BLOOD UREA NITROGEN 30 MG/DL (7-18); BUN/CREATININE RATIO 9.9 (6.6-38.0); CALCIUM 8.6 MG/DL (8.5-10.1); CHLORIDE 102 MMOL/L (99-107); CREATININE 3.04 MG/DL (0.40-0.90); GLUCOSE 187 MG/DL (70-104); MAGNESIUM 1.8 MG/DL (1.5-2.4); POTASSIUM 3.6 MMOL/L (3.5-5.1); PREALBUMIN 5.3 MG/DL (19-36); SODIUM 134 MMOL/L (135-145); TOTAL CARBON DIOXIDE 20.5 MMOL/L (24-32); eGFR 16 ML/MIN
[2020-03-11 03:39] LABS: ALBUMIN/GLOBULIN RATIO 0.4 (1.1-1.5); TOTAL PROTEIN 6.1 G/DL (6.4-8.2)
[2020-03-11 03:54] LABS: PLATELET COUNT 19 X10'3 (140-440)
[2020-03-11 04:05] LABS: ABG BASE EXCESS -9.9 mmol/L (-2.0-2.0); ABG HCO3 14.5 mmol/L (22.0-26.0); ABG OXYGEN SATURATION 97.4 % (94-97); ABG PO2 (T) 102.1 mmHg (75.0-100.0); FCOHb 0.7 % (0.0-3.9); FMetHb 0.2 % (0.0-1.5); FO2Hb 96.5 % (94-97); PATIENT TEMPERATURE 36.1; PEEP 12 cm H2O; RESPIRATORY RATE 20 b/min; TIDAL VOLUME 400 mL; TOTAL HEMOGLOBIN 7.6 G/dl (12.0-16.0)
[2020-03-11] MEDS: vasopressin inj. 40 UNIT in normal saline 50ml IV soln 38 ML IV PRN ×2 (04:59→20:42)
[2020-03-11 05:07] LABS: TOTAL CELLS COUNTED 100
[2020-03-11 05:09] LABS: BURR CELLS 1+; PLATELET ESTIMATE DECREASED; SPHEROCYTES 1+; TARGET CELLS FEW
[2020-03-11 05:10] LABS: ANISOCYTOSIS 2+
[2020-03-11 05:11] LABS: TOXIC GRANULATION 1+; TOXIC VACUOLATION FEW
[2020-03-11] MEDS: pantoprazole 40 MG vial IV SCH (09:09)
[2020-03-11] MEDS: ceFAZolin 1GM/D5W- ADD-VANTAGE 50 ML IV SCH ×2 (09:09→20:31)
[2020-03-11] MEDS: lactobacillus rhamnosus 10,000 MMU CELLS/CAPSULE OGT SCH ×2 (09:10→20:31)
[2020-03-11 15:53] LABS: CLARITY,URINE CLOUDY (Clear); COLOR,URINE YELLOW (Yellow); GLUCOSE, URINE NEGATIVE (Neg); KETONES,URINE TRACE mg/dl (Neg); LEUKOCYTE ESTERASE ,URINE TRACE (Neg); NITRITES, URINE NEGATIVE (Neg); OCCULT BLOOD,URINE LARGE (Neg); PH,URINE 5.5 (4.8-8.0); PROTEIN,URINE 100 mg/dl (Neg)
[2020-03-11 15:54] LABS: UA COLLECTION TYPE FOLEY CATH
[2020-03-11] MEDS: Dextrose 10%-water IV solution 1,000 ML IV SCH ×2 (16:00→17:42)
[2020-03-11 16:06] LABS: SQUAMOUS EPITHELIAL CELL,UR FEW /LPF (FEW)
[2020-03-11 16:08] LABS: BACTERIA,URINE 2+ /HPF (Neg); YEAST MANY /HPF (NEGATIVE)
[2020-03-11 17:23] LABS: UA EOSINOPHILS NO EOS /HPF
[2020-03-11] MEDS: famotidine/PF 10 mg/ml inj IV SCH (20:31)
[2020-03-12] VITALS (21 sets, daily range): BP systolic 94–129; BP diastolic 43–65
[2020-03-12] MEDS: hydrocortisone sod succ/PF 100mg/2ml inj. IV SCH ×2 (00:17→07:59)
[2020-03-12] MEDS: NORepinephrine inj. 32 MG in normal saline 250ml IV soln 218 ML IV SCH ×2 (00:18→07:10)
[2020-03-12] MEDS: mineral oil/petrolatum ophthal oint EACHEYE SCH ×2 (02:20→07:08)
[2020-03-12 03:05] LABS: ABG BASE EXCESS -4.6 mmol/L (-2.0-2.0); ABG HCO3 19.7 mmol/L (22.0-26.0); ABG OXYGEN SATURATION 95.6 % (94-97); ABG PCO2 (T) 31.4 mmHg (32.0-45.0); ABG PO2 (T) 76.8 mmHg (75.0-100.0); FCOHb 0.9 % (0.0-3.9); FMetHb 0.2 % (0.0-1.5); FO2Hb 94.5 % (94-97); PATIENT TEMPERATURE 36.3; PEEP 12 cm H2O; RESPIRATORY RATE 20 b/min; TIDAL VOLUME 400 mL; TOTAL HEMOGLOBIN 6.9 G/dl (12.0-16.0)
[2020-03-12 03:32] LABS: BASOPHILS % (AUTO) 0.2 % (0-1); EOSINOPHILS % (AUTO) 0.1 % (0-6); LYMPHOCYTES # (AUTO) 0.9 X10'3 (1.1-4.8); LYMPHOCYTES % (AUTO) 5.7 % (21-51); MEAN CORPUSCULAR HEMOGLOBIN 34.4 PG (27.0-31.0); MEAN CORPUSCULAR HGB CONC 33.3 g/dL (33.0-36.5); MEAN CORPUSCULAR VOLUME 103.5 FL (78-98); MEAN PLATELET VOLUME 7.9 FL (7.4-10.4); MONOCYTES # (AUTO) 0.8 X10'3 (0-0.9); MONOCYTES % (AUTO) 5.2 % (2-12); NEUTROPHILS # (AUTO) 14.4 X10'3 (1.8-7.7); NEUTROPHILS % (AUTO) 88.8 % (42-75); RED BLOOD COUNT 1.95 X10'6 (4.20-5.60); RED CELL DISTRIBUTION WIDTH 18.4 % (11.5-14.5); WHITE BLOOD COUNT 16.2 X10'3 (4.5-11.0)
[2020-03-12 03:35] LABS: ALANINE AMINOTRANSFERASE 16 U/L (12-78); ALBUMIN 1.5 G/DL (3.4-5.0); ALKALINE PHOSPHATASE 118 IU/L (46-116); ANION GAP 12 (8-16); ASPARTATE AMINO TRANSFERASE 60 U/L (10-37); BILIRUBIN,TOTAL 6.3 MG/DL (0.1-1.0); BLOOD UREA NITROGEN 39 MG/DL (7-18); BUN/CREATININE RATIO 11.9 (6.6-38.0); CALCIUM 8.8 MG/DL (8.5-10.1); CHLORIDE 102 MMOL/L (99-107); CREATININE 3.29 MG/DL (0.40-0.90); GLUCOSE 193 MG/DL (70-104); POTASSIUM 3.5 MMOL/L (3.5-5.1); SODIUM 134 MMOL/L (135-145); TOTAL CARBON DIOXIDE 19.6 MMOL/L (24-32); eGFR 15 ML/MIN
[2020-03-12 03:36] LABS: ALBUMIN/GLOBULIN RATIO 0.4 (1.1-1.5); TOTAL PROTEIN 5.7 G/DL (6.4-8.2)
[2020-03-12 03:46] LABS: HEMATOCRIT 20.2 % (35.0-45.0); HEMOGLOBIN 6.7 g/dl (12.0-16.0)
[2020-03-12 03:47] LABS: PLATELET COUNT 11 X10'3 (140-440)
[2020-03-12] MEDS: ceFAZolin 1GM/D5W- ADD-VANTAGE 50 ML IV SCH (07:58)
[2020-03-12] MEDS: famotidine/PF 10 mg/ml inj IV SCH (07:58)
[2020-03-12] MEDS: lactobacillus rhamnosus 10,000 MMU CELLS/CAPSULE OGT SCH (07:59)
--- NOTE | 2020-03-12 12:17 | NUR ---
TF consult: Pt never started on TF, has been receiving D10 at 50 mL/hr (408 kcal). TF to start today per circulation crew leader at critical care rounds. Recommendations below. No documented LBM, pt with PRN bowel care available. Will continue to follow closely. Recommend: 1. Continuous TF via OG tube using Vital AF to begin at 20 mL/hr and advance by 20 mL Q8H as tolerated to goal rate of 60 mL/hr to provide: 1440 mL total volume/day, 1728 kcal, 108 g protein, and 1168 mL water 2. additional water flush per circulation crew leader, pt on HD with low serum Na today 3. prealbumin q Sunday/; daily wts 4. routine bowel care 5. When extubated, advance diet as medically indicated to regular Addendum: 03/12/20 at [address] Amended: Links added.
[2020-03-12] MEDS ORDERED: LORazepam 2 mg/ml vial IV PRN (15:20)
[2020-03-12] MEDS: morphine 10mg/ml inj. IV PRN ×2 (15:45→17:17)
--- NOTE | 2020-03-12 17:57 | NUR ---
Pt compassionately extubated at 1355 with family at bedside. Joann RT extubated patient. Morphine 4mg IVP and Ativan 4mg IVP administered per Dr. hess. Pt at 1740. Pronounced at the bedside by myself and YAHIR Roberto. Family took patients belongings: cell phone, wallet, clothes, and purse. [place] case management spoke with family member about support for son. Donor network called and notified. Dr. Kasper notified of patients expiration. Mortuary notified. Addendum: 03/12/20 at 1806 by Mohini Martin RN Pt extubated at 1555. An additional 4mg Morphine IVP administered 1700.
== END 2020-03-12 17:40 | disposition expired | DRG 720 ==
LOC: ER 14:52 → ED HOLD 19:42 → ICU 2S 03-06 04:45
PROC: 02HV33Z Insertion of Infusion Device into Superior Vena Cava, Percutaneous Approach (ICD-10-PCS; 2020-03-05)
PROC: 5A1955Z Respiratory Ventilation, Greater than 96 Consecutive Hours (ICD-10-PCS; 2020-03-05)
PROC: 0BH17EZ Insertion of Endotracheal Airway into Trachea, Via Natural or Artificial Opening (ICD-10-PCS; 2020-03-05)
PROC: 4A00X4Z Measurement of Central Nervous Electrical Activity, External Approach (ICD-10-PCS; principal; 2020-03-08)
PROC: 06HM33Z Insertion of Infusion Device into Right Femoral Vein, Percutaneous Approach (ICD-10-PCS; 2020-03-08)
PROC: 30233R1 Transfusion of Nonautologous Platelets into Peripheral Vein, Percutaneous Approach (ICD-10-PCS; 2020-03-12)
PROC: 30233N1 Transfusion of Nonautologous Red Blood Cells into Peripheral Vein, Percutaneous Approach (ICD-10-PCS; 2020-03-12)
DX: A41.9 Sepsis, unspecified organism (principal); J96.01 Acute respiratory failure with hypoxia; J96.02 Acute respiratory failure with hypercapnia; R65.21 Severe sepsis with septic shock; J18.9 Pneumonia, unspecified organism; N17.9 Acute kidney failure, unspecified; I46.9 Cardiac arrest, cause unspecified; D64.9 Anemia, unspecified; E87.2 Acidosis; E87.6 Hypokalemia; F12.90 Cannabis use, unspecified, uncomplicated; J44.0 Chronic obstructive pulmonary disease with (acute) lower respiratory infection; Z20.828 Contact with and (suspected) exposure to other viral communicable diseases; G93.1 Anoxic brain damage, not elsewhere classified
CPT/HCPCS: 31500; 36415; 36430; 36556; 36600; 70450; 70544; 70551; 71045; 71250; 71275; 74176; 74177; 76942; 80048; 80053; 80177; 80202; 81001; 81025; 82140; 82550; 82553; 82570; 82803; 82948; 83605; 83735; 84100; 84134; 84145; 84300; 84443; 84484; 85007; 85008; 85018; 85025; 85379; 85384; 85610; 85730; 86885; 86900; 86901; 86920; 87040; 87070; 87081; 87186; 87207; 87635; 92950; 93005; 94002; 94003; 94640; 94760; 95816; 96365; 96366; 96367; 96368; 96375; 99291; C9113; G0378; J0171; J0330; J0456; J0690; J1644; J1720; J1815; J1953; J2060; J2150; J2250; J2270; J2543; J2765; J3010; J3370; J3475; J3480; J3490; J7030; J7050; P9016; P9035; P9047; Q4081; Q9967